=== PATIENT | female | born 1955 | race Caucasian/White ===

== ENCOUNTER 2020-03-05 07:33 | Outpatient (REF) | payer MEDICARE, OTHER, SELFPAY ==
[2020-03-05 08:36] LABS: MANUAL DIFF FLAG NO
[2020-03-05 08:46] LABS: Basophils Absolute Auto 0.1 X10*3/uL (0.0-0.2); Basophils Percent Auto 0.6 % (0-2); Eosinophils Absolute Auto 0.3 X10*3/uL (0.0-0.4); Eosinophils Percent Auto 2.9 % (0-4); Hematocrit 43.2 % (37-47); Hemoglobin 14.3 g/dl (12.0-16.0); Imm Gran Abs Auto 0.02 X10*3/uL (0.00-0.03); Imm Gran Pct Auto 0.2 % (0.0-0.4); Lymphocytes Absolute Auto 4.4 X10*3/uL (1.2-4.9); Lymphocytes Percent Auto 49.8 % (20-40); Mean Corpuscular HGB Conc 33.1 g/dl (31.0-35.0); Mean Corpuscular Hemoglobin 29.5 pg (27.0-33.0); Mean Corpuscular Volume 89.3 fL (80-98); Mean Platelet Volume 10.3 fL (9.4-12.3); Monocytes Absolute Auto 0.6 X10*3/uL (0.1-1.2); Monocytes Percent Auto 7.2 % (2-11); Neutrophils Absolute Auto 3.5 X10*3/uL (2.0-8.3); Neutrophils Percent Auto 39.3 % (45-73); Platelet Count 219 X10*3/uL (160-400); Red Blood Count 4.84 X10*6/uL (4.20-5.50); Red Cell Distribution Width 13.1 % (11.0-16.0); White Blood Count 8.9 X10*3/uL (4.8-10.8)
[2020-03-05 09:10] LABS: Alanine Aminotransferase 30 U/L (0-31); Albumin Level 4.2 g/dL (3.5-5.0); Alkaline Phosphatase 109 U/L (39-117); Anion Gap 11 (12-20); Aspartate Amino Transferase 24 U/L (5-31); Bilirubin Total 0.5 mg/dL (0.0-1.0); Blood Urea Nitrogen 15 mg/dL (9-16); Calcium 9.4 mg/dL (8.4-10.2); Carbon Dioxide 26 mmol/L (22-29); Chloride 107 mmol/L (96-108); Cholesterol 197 mg/dL; Estimated Glomerular Filt Rate > 60; Glucose Fasting 108 mg/dL (60-99); HDL Cholesterol 37 mg/dL; LDL Cholesterol Calculated 131 mg/dl; Potassium 4.5 mmol/l (3.3-5.1); Sodium 139 mmol/L (135-145); Total Protein 7.2 g/dL (6.5-8.0); Triglycerides 146 mg/dL
[2020-03-05 09:14] LABS: Glucose Urine UA NEG (NEG); Leukocyte Esterase Urine NEG (NEG); Nitrite Urine NEG (NEG); PH 5.5 (5.0-8.0); Specific Gravity - Urine >= 1.030 (1.005-1.025); Urine Blood TRACE (NEG); Urine Ketones NEG (NEG); Urine Protein NEG (NEG-TRACE)
[2020-03-05 09:32] LABS: Vitamin D 25-OH Total 43.6 ng/mL (>30)
[2020-03-05 09:36] LABS: Appearance Urine CLEAR; Color Urine YELLOW
[2020-03-05 10:20] LABS: Squamous Epithelial Cell Urine TRACE /LPF
== END 2020-03-05 07:34 | disposition home or self-care (01) ==
LOC: HO.LAB 07:33
PROVIDERS: PCP Internal Medicine; Visit Provider Internal Medicine
DX: D72.820 Lymphocytosis (symptomatic) (principal); E78.00 Pure hypercholesterolemia, unspecified; Z78.0 Asymptomatic menopausal state; Z87.448 Personal history of other diseases of urinary system
CPT/HCPCS: 36415; 80053; 80061; 81001; 81003; 82306; 85025

== ENCOUNTER 2021-01-29 09:43 | Day surgery (SDC) | payer OTHER, SELFPAY ==
[2021-01-29 10:29] VITALS: BP 146/73; PULSE 73; RESP 20; TEMP 36.7; O2SAT 97; BMI 36.0
--- NOTE | 2021-01-29 11:00 | HO.ANESPROP2 ---
[facility] Surgical History Surgical History (Updated 01/29/21 @ 10:41 by Martina Butler RN) H/O left knee surgery History of Problems with Anesthesia: No Social History Social History Patient Tobacco Use Status: Former Tobacco user Use of substances other than those prescribed or required for medical reasons: No Are you DNR?: No Advance Directives: No Advance Directives Information Provided: Yes Meds Allergies Allergy/AdvReac Type Severity Reaction Status Date / Time No Known Allergies Allergy Verified 01/29/21 10:34 [No Known Allergies*] Exam Exam Date and Time: January 29, 2021 1100 Height,Weight and Vital Signs: Height 5 ft 7 in Weight 104.326 kg Last Vital Signs Temp 98.1 F 01/29/21 10:29 Pulse 73 01/29/21 10:29 Resp 20 01/29/21 10:29 BP 146/73 H 01/29/21 10:29 Pulse Ox 97 01/29/21 10:29 Airway Mallampati Class: II TM Dist: >3cm Neck ROM: Full Loose/Missing/Broken Teeth: No Heart: RRR Lungs: CTA Assessment and Plan Assessment Anesthesia Assessment: Anesthesia Plan Discussed and Chart Reviewed Final Anesthetic Review History of Problems with Anesthesia: No NPO: Yes ASA Class: II Final Preanesthetic Review: Meds/Allgs Chart Reviewed, Consent Obtained/Reviewed and Anes Risks/Benef Reviewed Patient Risk: Low Procedure Risk: Low Anesthetic Plan Anesthetic Plan: MAC: Disposition: Standard PACU
--- NOTE | 2021-01-29 11:20 | MHC.SHP ---
Pre-Procedural Eval Section A Date of Service: 01/29/21 The patient is an INPATIENT: No Changes since office visit: No Cold of Flu in the past 2 weeks, No New Medical Problems, No Changes in Medication and No Patient answered all questions The History & Physical has been completed within 30 days and I have reviewed it.: Yes Section B Chief Complaint: screening Allergies: Allergies Allergy/AdvReac Type Severity Reaction Status Date / Time No Known Allergies Allergy Verified 01/29/21 10:34 [No Known Allergies*] Plan I have reviewed the history and physical and performed a pertinent physical examination on my patient. No changes have occurred unless specified.
[2021-01-29] MEDS: Lactated Ringers 1,000 ML 50 ML IVCONT (11:28)
[2021-01-29 12:11] VITALS: BP 142/73; PULSE 73; RESP 18; TEMP 36.6; O2SAT 99
--- NOTE | 2021-01-29 12:20 | P.BOP_ITS ---
Brief Operative Note Date of Service: 01/29/21 Pre-op diagnosis: screening Post-op diagnosis: same Procedure: colonoscopy Surgeon: Osvaldo Ulloa Anesthesia: MAC Was an Rubber Stamp Die Inspector used for this Procedure?: No Estimated blood loss (mL): 0 Pathology: none sent Condition: stable Disposition: PACU
[2021-01-29 12:26] VITALS: BP 141/84; PULSE 68; RESP 18; O2SAT 96
[2021-01-29 12:38] VITALS: BP 149/94; PULSE 68; RESP 18; O2SAT 100
--- NOTE | 2021-01-29 18:50 | OP_ITS ---
SURGEON: Osvaldo Ulloa MD INDICATIONS: Colon cancer screening and prior history of sessile serrated adenoma. PREOPERATIVE DIAGNOSIS: POSTOPERATIVE DIAGNOSIS: PROCEDURE PERFORMED: Colonoscopy to the terminal ileum. ESTIMATED BLOOD LOSS: COMPLICATIONS: ANESTHESIA: ASSISTANTS: SPECIMENS: MEDICATIONS: Monitored anesthesia care. DESCRIPTION OF PROCEDURE: History and physical performed. The risks and benefits of the procedure were explained to the patient. Informed consent was obtained. The patient was placed in the left lateral decubitus position. A digital rectal exam was performed and was found to be normal. The Olympus pediatric video colonoscope was introduced into the rectum and advanced to the cecum without difficulty. The cecum was identified by transillumination, palpation, and identification of ileocecal valve. Examination was performed and the scope was removed. She tolerated the procedure well and was taken to recovery area in stable condition. FINDINGS: The terminal ileum was examined and appeared normal. The visualized colonic mucosa was normal. The quality of the prep was good. No polyps were identified. Retroflexed examination showed small internal hemorrhoids. There were few diverticula seen in the sigmoid. IMPRESSION: Normal colonoscopy. RECOMMENDATIONS: 1. Follow up as needed. 2. Repeat colonoscopy is recommended in 7 to 10 years because of prior history of colon polyps. MD NETO Schultz/NOVA / [id number]
== END 2021-01-29 13:24 | disposition home or self-care (01) ==
PROVIDERS: PCP Internal Medicine; Visit Provider Internal Medicine Gastroenterology
PROC: 0DJD8ZZ Inspection of Lower Intestinal Tract, Via Natural or Artificial Opening Endoscopic (ICD-10-PCS; CPT 45378; principal; 2021-01-29 11:00)
DX: Z12.11 Encounter for screening for malignant neoplasm of colon (principal); Z86.010 Personal history of colon polyps
CPT/HCPCS: G0105

== ENCOUNTER 2022-01-02 21:18 | Emergency (ER) | payer OTHER, SELFPAY ==
--- NOTE | ~2022-01-02 | XR_ITS ---
EXAMINATION: RIGHT HIP AND RIGHT KNEE. CLINICAL INFORMATION: Fall. Pain. COMPARISON: None TECHNIQUE: AP pelvis and right hip 3 views. Right knee 3 views. FINDINGS: AP pelvis: There is normal symmetry of bilateral hip joints and SI joints. Hypertrophic changes along the pubic symphysitis is noted. No visible acute fracture seen. There is moderate degenerative changes with moderate spondylosis on the left at the L4-L5 and L5-S1 disc levels. Right hip: AP and frog-leg views right hip reveal no visible acute fracture, dislocation or subluxation seen. The soft tissues are normal. Right knee: There is no visible acute fracture, dislocation or subluxation seen. The soft tissues are normal. Lateral view right knee is not obtained. XR/XR knee RT 4V IMPRESSION: No acute fracture or dislocation involving the pelvis of the right hip.
--- NOTE | ~2022-01-02 | XR_ITS ---
EXAMINATION: RIGHT HIP AND RIGHT KNEE. CLINICAL INFORMATION: Fall. Pain. COMPARISON: None TECHNIQUE: AP pelvis and right hip 3 views. Right knee 3 views. FINDINGS: AP pelvis: There is normal symmetry of bilateral hip joints and SI joints. Hypertrophic changes along the pubic symphysitis is noted. No visible acute fracture seen. There is moderate degenerative changes with moderate spondylosis on the left at the L4-L5 and L5-S1 disc levels. Right hip: AP and frog-leg views right hip reveal no visible acute fracture, dislocation or subluxation seen. The soft tissues are normal. Right knee: There is no visible acute fracture, dislocation or subluxation seen. The soft tissues are normal. Lateral view right knee is not obtained. XR/XR hip RT min 2V IMPRESSION: No acute fracture or dislocation involving the pelvis of the right hip.
[2022-01-02 21:39] VITALS: BP 145/74; PULSE 72; RESP 16; TEMP 36.2; O2SAT 97; BMI 33.6
[2022-01-03 01:46] VITALS: PULSE 76; RESP 18; O2SAT 94
[2022-01-03] MEDS: Ibuprofen 600 MG TABLET PO (02:43)
--- NOTE | 2022-01-03 03:49 | ED.FALL ---
HPI - Fall General Chief Complaint: Fall Stated Complaint: fall Time Seen by Provider: 01/03/22 03:49 History of Present Illness HPI Narrative: Patient is 66-year-old female status post accidental fall. Patient's caught her right foot on the born door. Twisted her knee and also her right hip area. Patient was able to bear weight. Denies any head injury. Not on blood thinners. No nausea no vomiting no focal weakness. Patient is from home. Related Data Allergies Allergy/AdvReac Type Severity Reaction Status Date / Time No Known Allergies Allergy Verified 01/02/22 21:44 [No Known Allergies*] Review of Systems Review of Systems: No chest pain or shortness of breath no diaphoresis No fever no chills No head injury Yes all other systems are reviewed and are negative [facility] Past Medical History Attestation statement: The following information was validated with the patient. Surgical History H/O left knee surgery Social History Social History Patient Tobacco Use Status: Former Tobacco user Advance Directives: No Advance Directives Information Provided: Yes Physical Exam Vital Signs: Vital Signs: Last Vital Signs Temp 97.1 F 01/02/22 21:39 Pulse 76 01/03/22 01:46 Resp 18 01/03/22 01:46 BP 145/74 H 01/02/22 21:39 Pulse Ox 94 01/03/22 01:46 O2 Del Method 01/03/22 01:46 BMI result Body Mass Index 33.6 Appearance: Alert. Oriented X3. No acute distress. Eyes: Pupils equal, round and reactive to light. ENT: Pharynx normal. Neck: Normal inspection. Neck supple. No lymph nodes noted. No crepitus CVS: Normal heart rate and rhythm. Pulses normal. Normal S1 and S2 Respiratory: No respiratory distress. Breath sounds normal. No Wheezing. No rales Abdomen: Soft and nontender. No rigidity. No distention. good BS x4 Skin: Skin warm and dry. Normal skin color. Normal skin turgor. Extremities: No lower extremity edema. Neurovascular intact to all extremities. Range of motion grossly intact in the lower extremity. Distal pulses intact. Sensation intact. Capillary refill less than 2 seconds. Able to bear weight on the right hip without any difficulties. Neuro: Oriented X 3. No motor deficit. No sensory deficit. Moving all extermities. No slurred speech MDM - Fall MDM Narrative Medical decision making narrative: X-ray of the hip and knees were both negative for any acute fracture. Patient well-appearing no head injury. Ambulated in the ED. Will ask patient to take Motrin for now. Follow-up on an outpatient basis. Medical Records Attestation: I reviewed the patient's medical records. Lab Data Attestation: I reviewed the patient's lab results. Discharge Plan Discharge Clinical Impression: Contusion Patient Disposition: Home, Self-Care Instructions: Contusion in Adults (ED) Referrals: Leda Busch [Primary Care Provider] - 01/06/22
== END 2022-01-03 04:08 | disposition home or self-care (01) ==
PROVIDERS: Emergency Provider Emergency Medicine Emergency Medical Services
DX: S80.01XA Contusion of right knee, initial encounter (principal); S70.01XA Contusion of right hip, initial encounter; M25.551 Pain in right hip; M25.561 Pain in right knee; W01.0XXA Fall on same level from slipping, tripping and stumbling without subsequent striking against object, initial encounter; Y93.9 Activity, unspecified; Y92.9 Unspecified place or not applicable; Y99.9 Unspecified external cause status; Z79.899 Other long term (current) drug therapy
CPT/HCPCS: 73502; 73564; 99283; 99284

== ENCOUNTER 2022-06-19 10:34 | Outpatient (REF) | payer OTHER, SELFPAY ==
[2022-06-19 10:37] LABS: MANUAL DIFF FLAG NO
[2022-06-19 10:54] LABS: Appearance Urine Clear; Color Urine Yellow; Glucose Urine UA Negative (Negative); Leukocyte Esterase Urine Negative (Negative); Nitrite Urine Negative (Negative); PH 5.5 (5.0-9.0); Specific Gravity - Urine 1.015 (1.005-1.025); Urine Blood Negative (Negative); Urine Ketones Negative (Negative); Urine Protein Negative (Neg-Trace)
[2022-06-19 10:59] LABS: Bacteria Urine None Seen (None Seen); Hyaline Casts Urine 0-2 /LPF (0-2); RBC Urine 0-2 /HPF (0-2); WBC Urine 0-5 /HPF (0-5)
[2022-06-19 11:03] LABS: Basophils Absolute Auto 0.1 X10*3/uL (0.0-0.2); Basophils Percent Auto 0.6 % (0-2); Eosinophils Absolute Auto 0.2 X10*3/uL (0.0-0.4); Eosinophils Percent Auto 2.1 % (0-4); Hematocrit 44.4 % (37.0-47.0); Hemoglobin 14.9 g/dl (12.0-16.0); Imm Gran Abs Auto 0.04 X10*3/uL (0.00-0.03); Imm Gran Pct Auto 0.5 % (0.0-0.4); Lymphocytes Absolute Auto 4.7 X10*3/uL (1.2-4.9); Lymphocytes Percent Auto 56.2 % (20-40); Mean Corpuscular HGB Conc 33.6 g/dl (31.0-35.0); Mean Corpuscular Hemoglobin 29.8 pg (27.0-33.0); Mean Corpuscular Volume 88.8 fL (80.0-98.0); Mean Platelet Volume 11.1 fL (9.4-12.3); Monocytes Absolute Auto 0.6 X10*3/uL (0.1-1.2); Monocytes Percent Auto 7.1 % (2-11); Neutrophils Absolute Auto 2.8 x10*3/uL (2.0-8.3); Neutrophils Percent Auto 33.5 % (45-73); Platelet Count 220 X10*3/uL (160-400); Red Cell Distribution Width 12.5 % (11.0-16.0); White Blood Count 8.4 X10*3/uL (4.8-10.8)
[2022-06-19 11:11] LABS: Alanine Aminotransferase 29 U/L (0-31); Albumin Level 4.3 g/dL (3.5-5.0); Alkaline Phosphatase 110 U/L (39-117); Anion Gap 10 (12-20); Aspartate Amino Transferase 26 U/L (5-31); Bilirubin Total 0.4 mg/dL (0.0-1.0); Blood Urea Nitrogen 13 mg/dL (9-16); Calcium 9.4 mg/dL (8.4-10.2); Carbon Dioxide 26 mmol/L (22-29); Chloride 110 mmol/L (96-108); Cholesterol 217 mg/dL; Estimated Glomerular Filt Rate > 60; Glucose Fasting 105 mg/dL (60-99); HDL Cholesterol 40 mg/dL; LDL Cholesterol Calculated 148 mg/dl; Potassium 4.5 mmol/L (3.3-5.1); Sodium 141 mmol/L (135-145); Total Protein 7.1 g/dL (6.5-8.0); Triglycerides 147 mg/dL
== END 2022-06-19 10:35 | disposition home or self-care (01) ==
LOC: HO.LNP 10:34
PROVIDERS: Visit Provider Internal Medicine
DX: D72.820 Lymphocytosis (symptomatic) (principal); E78.00 Pure hypercholesterolemia, unspecified
CPT/HCPCS: 80053; 80061; 81001; 85025

== ENCOUNTER 2023-06-23 11:26 | Outpatient (REF) | payer OTHER, SELFPAY ==
[2023-06-23 11:29] LABS: MANUAL DIFF FLAG NO
[2023-06-23 12:04] LABS: Appearance Urine Clear; Color Urine Yellow; Glucose Urine UA Negative (Negative); Leukocyte Esterase Urine Small (1+) (Negative); Nitrite Urine Negative (Negative); PH 5.5 (5.0-9.0); UMIC TRIGGER UACC YES; Urine Blood Negative (Negative); Urine Ketones Negative (Negative); Urine Protein Negative (Neg-Trace)
[2023-06-23 12:05] LABS: Basophils Absolute Auto 0.1 X10*3/uL (0.0-0.2); Basophils Percent Auto 0.8 % (0-2); Eosinophils Absolute Auto 0.2 X10*3/uL (0.0-0.4); Eosinophils Percent Auto 2.2 % (0-4); Hematocrit 44.1 % (37.0-47.0); Hemoglobin 14.7 g/dl (12.0-16.0); Imm Gran Abs Auto 0.02 X10*3/uL (0.00-0.03); Imm Gran Pct Auto 0.2 % (0.0-0.4); Lymphocytes Absolute Auto 4.8 X10*3/uL (1.2-4.9); Mean Corpuscular HGB Conc 33.3 g/dl (31.0-35.0); Mean Corpuscular Hemoglobin 29.7 pg (27.0-33.0); Mean Corpuscular Volume 89.1 fL (80.0-98.0); Mean Platelet Volume 11.7 fL (9.4-12.3); Monocytes Absolute Auto 0.6 X10*3/uL (0.1-1.2); Monocytes Percent Auto 7.3 % (2-11); Neutrophils Absolute Auto 2.6 x10*3/uL (2.0-8.3); Neutrophils Percent Auto 31.5 % (45-73); Platelet Count 225 X10*3/uL (160-400); Red Blood Count 4.95 X10*6/uL (4.20-5.50); Red Cell Distribution Width 12.3 % (11.0-16.0); White Blood Count 8.3 X10*3/uL (4.8-10.8)
[2023-06-23 12:32] LABS: Bacteria Urine None Seen (None Seen); Hyaline Casts Urine 0-2 /LPF (0-2); RBC Urine 0-2 /HPF (0-2); UACC Culture Trigger YES; WBC Urine 0-5 /HPF (0-5)
[2023-06-23 12:48] LABS: Alanine Aminotransferase 25 U/L (0-31); Albumin Level 4.1 g/dL (3.5-5.0); Alkaline Phosphatase 97 U/L (39-117); Anion Gap 12 (12-20); Aspartate Amino Transferase 24 U/L (5-31); Bilirubin Total 0.3 mg/dL (0.0-1.0); Blood Urea Nitrogen 14 mg/dL (9-16); Calcium 9.4 mg/dL (8.4-10.2); Carbon Dioxide 23 mmol/L (22-29); Chloride 111 mmol/L (96-108); Cholesterol 211 mg/dL (<200); Estimated Glomerular Filt Rate > 60; Glucose Fasting 88 mg/dL (60-99); HDL Cholesterol 43 mg/dL (>40); LDL Cholesterol Calculated 140 mg/dL (<100); Potassium 4.2 mmol/L (3.3-5.1); Sodium 142 mmol/L (135-145); Total Protein 7.2 g/dL (6.5-8.0); Triglycerides 140 mg/dL (<150)
== END 2023-06-23 11:27 | disposition home or self-care (01) ==
LOC: HO.LNP 11:26
PROVIDERS: Visit Provider Internal Medicine
DX: Z00.00 Encounter for general adult medical examination without abnormal findings (principal); E78.00 Pure hypercholesterolemia, unspecified; D72.820 Lymphocytosis (symptomatic); R82.90 Unspecified abnormal findings in urine
CPT/HCPCS: 80053; 80061; 81001; 85025; 87086

== ENCOUNTER 2024-06-15 11:52 | Outpatient (RCR) | payer OTHER, SELFPAY | END 2024-06-24 08:39 | disposition home or self-care (01) | LOC: HO.PT 11:52 | PROVIDERS: PCP Internal Medicine; Visit Provider Orthopaedic Surgery | DX: M76.61 Achilles tendinitis, right leg (principal) | CPT/HCPCS: 97110; 97161; 97530 ==

== ENCOUNTER 2024-06-19 08:07 | Emergency (ER) | payer OTHER, SELFPAY ==
--- NOTE | ~2024-06-19 | XR_ITS ---
CLINICAL HISTORY: fall, lateral swelling and tenderness 3 views right ankle Comparison: None Findings: No fractures, subluxations or dislocations. Ankle mortise intact. Normal plafond. No osteochondral lesions. Calcaneus and subtalar joint intact. Mild degenerative changes involving the talonavicular joint. Plantar calcaneal enthesophyte. There is flattening of the posterior calcaneal tuberosity this may be developmental or from prior surgery clinical correlation. Soft tissue swelling posterolaterally. Normal pre-Achilles fat pad. No radiopaque foreign body. Impression: 1. Soft tissue swelling posterolaterally. Mild degenerative changes. This document has been electronically signed by: Nicholas Patton MD on 06/19/2024 09:51:48
[2024-06-19 08:19] VITALS: BP 149/85; PULSE 78; RESP 18; TEMP 36.3; O2SAT 96; BMI 35.5
[2024-06-19 08:46] VITALS: BP 141/71; PULSE 72; RESP 13; TEMP 36.6; O2SAT 97
--- NOTE | 2024-06-19 09:07 | ED_ITS ---
HPI - General Adult General Chief complaint: Extremity Injury, Lower Stated complaint: fall Time Seen by Provider: 06/19/24 09:00 Source: patient, family (), RN notes reviewed and old records reviewed Mode of arrival: wheelchair Limitations: no limitations History of Present Illness ED Provider: Paco HPI narrative: Patient is a 68-year-old female presenting to the emergency department with complaint of right ankle/achilles pain and swelling. States that while bringing her dog in from a walk she tripped, and got her foot hung up on a clump of grass, causing her foot to become hyperextended. She reports recent surgery with Dr. Crowe in [place], [place] to same ankle. She notes this was not for an achilles tear or rupture but affected the attachment of the tendon to her heel. Did not call Dr. Crowe's office, does not believe they have an on-call. Denies numbness, tingling. Called an urgent care and was advised to put on her walking boot which she has been out of for the past 2 weeks. MD complaint: right ankle pain Onset (ago): hour(s) Treatments prior to arrival: cold therapy and other (Tylenol) Related Data Allergies Allergy/AdvReac Type Severity Reaction Status Date / Time No Known Allergies Allergy Verified 06/19/24 08:22 [No Known Allergies*] Review of Systems Review of Systems: As per HPI. Yes all other systems are reviewed and are negative Constitutional: Constitutional: Reports as per HPI [facility] Past Medical History Surgical History H/O left knee surgery Social History Social History Patient Tobacco Use Status: Former Tobacco user Advance Directives: Yes Advance Directives Information Provided: Yes Advance Directives on File: No Physical Exam ED Vital Signs: Vital Signs - 24 hr 06/19/24 08:19 06/19/24 08:46 Temperature 97.3 F 97.9 F Pulse Rate 78 72 Respiratory Rate 18 13 Blood Pressure 149/85 H 141/71 H Pulse Oximetry 96 97 Oxygen Delivery Method Room Air Room Air BMI result Body Mass Index 35.5 Vital signs have been reviewed and appear to be correct. Blood pressure normal. Heart rate normal. Respiratory rate normal. Temperature normal. Oxygen saturation normal. Const General: cooperative, healthy appearing and no acute distress Orientation/consciousness: oriented to person, oriented to place, oriented to time and patient oriented x3 Limitations: no limitations HENMT Head: Yes normocephalic and Yes atraumatic Ears: external ears normal General nose exam: Normal external nose present Face and sinus: Yes face symmetric Mouth: oropharynx normal and moist mucous membranes Throat: Yes uvula midline Eyes Pupils: Equal, round and reactive pupils present Neck Neck: Yes normal visual inspection and Yes supple Resp Effort & Inspection: normal respiratory effort and able to speak in complete sentences Auscultation: clear to auscultation bilaterally Cardio Rate: regular rate Rhythm: regular rhythm Heart sounds: S1 normal heart sound present and S2 normal heart sound present GI Palpation (GI): Soft to palpation and nontender Auscultation: normoactive bowel sounds General: Yes no CVA tenderness Back/Spine/Pelvis Back: no CVA tenderness Skin General skin exam: elasticity normal and turgor normal Neuro General: oriented to person, oriented to place, oriented to time, patient oriented x3, moves all extremities, no focal motor deficits and CN's II-XI intact bilaterally Cranial nerves: Yes Equal, round and reactive pupils present Cognition (Neuro): normal cognition Extrem General: Yes full ROM, Yes no pedal edema and Yes no calf tenderness Right lower extremity: ankle Details: tenderness Location: of the lateral malleolus, of the medial malleolus and of the achilles tendon, swelling Details: laterally and posteriorly, normal ROM and achilles tendon exam abnormal (negative Sauer test on the right) Details: tenderness to palpation of achilles tendon; no step-off noted; no unusual warmth, no ecchymosis and no crepitus and foot Details: toes with normal ROM and vascular exam Details: dorsalis pedis pulse present, posterior tibial pulse present and normal capillary refill Psych Mental Status: mental status grossly normal Affect: normal affect Thought process: Normal thought process present Medical Decision Making Medical Decision Making MDM Narrative: Patient is a 68-year-old female presenting to the emergency department with complaint of right ankle/achilles pain and swelling. On exam patient is awake, A+Ox3, VS WNL, afebrile, normal neurological exam without focal deficits, physical exam findings as above. Given reported symptoms and physical exam findings, initial differential includes but is not limited to achilles tendon tear, ankle strain, sprain, fracture/avulsion. X-ray right ankle notable for no acute fracture. My interpretation is in agreement with the radiologist's interpretation. Patient updated on results and all questions answered. Patient placed back in walking boot and advised to keep this on until she is able to follow-up with her orthopedist next week. Advised patient to avoid any strenuous activities, keep foot elevated while at rest, Tylenol and ibuprofen as needed for discomfort. Return precautions discussed at bedside. Patient verbalized understanding of and agreement with plan. Differential Diagnosis Differential Diagnoses: The differential diagnosis associated with the presentation includes As per [facility] Independent Interpretation I performed an independent interpretation of an: Plain X-Ray Interpretation: No acute fracture right ankle on x-ray. Radiology Impression Discussion of test interpretation with radiology: I have reviewed the radiologist's reading. Radiologist Impression: Findings: No fractures, subluxations or dislocations. Ankle mortise intact. Normal plafond. No osteochondral lesions. Calcaneus and subtalar joint intact. Mild degenerative changes involving the talonavicular joint. Plantar calcaneal enthesophyte. There is flattening of the posterior calcaneal tuberosity this may be developmental or from prior surgery clinical correlation. Soft tissue swelling posterolaterally. Normal pre-Achilles fat pad. No radiopaque foreign body. Impression: 1. Soft tissue swelling posterolaterally. Mild degenerative changes. External Record Review External record reviewed: Inpatient record, Office record and Outpatient record Discharge Plan Discharge Clinical Impression: Ankle pain, right Patient Disposition: Home, Self-Care Instructions: R.I.C.E. Treatment (ED), Walking Boot (ED) Additional Instructions: You were evaluated in the emergency department today for right ankle pain after a fall. Your x-ray did not show any evidence fracture. We recommend that you continue to use the walking boot previously provided to until you are able to follow-up with your orthopedic doctor. Call their office 1st thing Thursday morning to schedule follow-up appointment. We recommend that you keep your foot elevated while at rest. You can use 650 mg of Tylenol or 600 mg ibuprofen every 6 hours as needed for discomfort. Return to the emergency department if you develop new weakness, numbness, tingling, change of color in your foot or any other new or concerning symptoms. Referrals: Kathy Crowe MD [Physician] - Print Language: Algerian
[2024-06-19 10:22] VITALS: BP 141/71; PULSE 72; RESP 13; TEMP 36.6; O2SAT 97
== END 2024-06-19 10:24 | disposition home or self-care (01) ==
PROVIDERS: Emergency Provider Emergency Medicine; PCP Internal Medicine
DX: S99.911A Unspecified injury of right ankle, initial encounter (principal); M25.571 Pain in right ankle and joints of right foot; W01.0XXA Fall on same level from slipping, tripping and stumbling without subsequent striking against object, initial encounter; Y93.K1 Activity, walking an animal; Y92.410 Unspecified street and highway as the place of occurrence of the external cause; Y99.8 Other external cause status
CPT/HCPCS: 73600; 99283

== ENCOUNTER → 2024-06-19 09:27 | Outpatient (BNV) | payer OTHER, SELFPAY | PROVIDERS: Emergency Provider Emergency Medicine; PCP Internal Medicine; Visit Provider Radiology Diagnostic Radiology | DX: M79.89 Other specified soft tissue disorders (principal); W19.XXXA Unspecified fall, initial encounter | CPT/HCPCS: 73600 ==

== ENCOUNTER 2024-07-21 11:30 | Outpatient (REF) | payer OTHER, SELFPAY ==
[2024-07-21 12:15] LABS: Appearance Urine Clear; Color Urine Yellow; Glucose Urine UA Negative (Negative); Leukocyte Esterase Urine Negative (Negative); Nitrite Urine Negative (Negative); Urine Blood Negative (Negative); Urine Ketones Negative (Negative); Urine Protein Negative (Neg-Trace)
[2024-07-21 12:20] LABS: Bacteria Urine None Seen (None Seen); Hyaline Casts Urine 0-2 /LPF (0-2); RBC Urine 0-2 /HPF (0-2); WBC Urine 0-5 /HPF (0-5)
[2024-07-21 12:32] LABS: Alanine Aminotransferase 35 U/L (0-31); Albumin Level 4.1 g/dL (3.5-5.0); Alkaline Phosphatase 118 U/L (39-117); Anion Gap 12 (12-20); Aspartate Amino Transferase 34 U/L (5-31); Bilirubin Total 0.4 mg/dL (0.0-1.0); Blood Urea Nitrogen 12 mg/dL (9-16); Calcium 9.3 mg/dL (8.4-10.2); Carbon Dioxide 23 mmol/L (22-29); Chloride 112 mmol/L (96-108); Cholesterol 222 mg/dL (<200); Estimated Glomerular Filt Rate > 60; Glucose Fasting 106 mg/dL (60-99); HDL Cholesterol 40 mg/dL (>40); LDL Cholesterol Calculated 148 mg/dL (<100); Potassium 4.2 mmol/L (3.3-5.1); Sodium 143 mmol/L (135-145); Total Protein 7.6 g/dL (6.5-8.0); Triglycerides 171 mg/dL (<150)
--- OUTSIDE RECORDS SUMMARY | 2024-07-21 12:52 | XMS_ITS ---
Author Organization Clark Mejía MD Address [address] [place], [place] [id number] Care Team Providers Care Cleat Thrower Name Role Phone Clark Mejía Primary Care Provider Allergies No Known Allergies REASON FOR VISIT annual visit, NO Covid symptoms Medications Medication SIG (Take, Route, Frequency, Duration) Notes Start Date End Date Status Calcium 600 MG 1 tablet with meals Orally Twice a day for 30 day(s) Active Vitamin D-3 125 MCG (5000 UT) as directed Orally Active Glucosamine Chondr 500 Complex - Orally Active Multi-Vitamins - 1 tablet Orally Once a day Active Aspirin 325 MG 1 tablet Orally Once a day for 30 day(s) Not-Taking Meloxicam 7.5 MG 1 tablet Orally Once a day for 30 day(s) Not-Taking Ibuprofen 600 MG 1 tablet Orally Thre e times a day Not-Taking Social History Tobacco Use: Social History Observation Description Date Details (start date - stop date) Former Smoker NA - NA Tobacco Use/Smoking Question Answer Notes Patient is a former smoker How long has it been since y ou last smoked? > 10 years Additional Findings: Tobacco Non-User Fo rmer smoker, currently using no form of tobacco Alcohol Screen Question Answer Notes Did you have a drink containing alcohol in the p ast year? No Points 0 Interpretation Negative Vital Signs Blood pressure systolic 132 mm Hg 06/30/19 24 Blood pressure diastolic 78 mm Hg 024 Height 66.5 in 06/30/2023 Weight 227 lbs 06/30/2023 BMI 36.09 kg/m2 06/30/2023 weight is down 3 pounds sinc e 06-26-22 Encounters Encounter Location Date Provider Diagnosis Clark Mejía MD [address] [place] [address] Drive [address] [place], [place] [phone] 06/30/2023 Clark Mejía Lymphocytosis D72.82 0 ; Annual physical exam Z00.00 ; Pure hypercholesterolemia E78.00 and Depression screening Z13.31 Assessments Encounter Date Diagnosis (ICD Code) Assessment Notes Treatment Notes Treatment Clinical Notes Section Notes 06/30/2023 Lymphocytosis (ICD-1 0 - D72.820) stable, will continue to monitor 06/30/2023 Annual physical exam (ICD-10 - Z00.00) labs reviewed and discussed with patients 06/30/2023 Pure hypercholesterolemia (ICD-10 - E78.00) stable, will continue current regiment 06/30/2023 Depression screening (ICD-10 - Z13.31) negative screen Plan Of Treatment Treatment Notes Assessment Notes Lymphocytosis stable, will continu e to monitor Annual physical exam labs reviewed and d iscussed with patients Pure hypercholesterolemia stable, will c ontinue current regiment Depression screening negative screen Next Appt Details Provider Name:Clark Llamas ier, 07/28/2024 11:00:00 AM, [address] [place] [address], [address], [place], [place], [phone], Progress Notes * Nadia LEE LDOB:1955 (67 yo F)Acc No.[id number]:06/30/2023 Progress Notes Patient:?Nadia Lee Provider:?Clark Mejía MD :1955???Age:67 Y???Sex:Female D ate:06/30/2023 [id number] Subjective: * Chief Complaints: * ???Annual visitNO Covid symp toms * HPI: ???Depression Screening:?PHQ-9?Little interest or pleasure in doing things?Not at all,?Feeling down, depressed, or hopeless?Not at all,?Trouble falling or staying asleep, or sleeping too much?Not at all,?Feeling tired or having little energy?Not at all,?Poor appetite or overeating?Not at all,?Feeling bad about yourself or that you are a failure, or have let yourself or your family down?Not at all,?Trouble concentrating on things, such as reading the newspaper or watching television?Not at all,?Moving or speaking so slowly that other people could have noticed; or the opposite, being so fidgety or restless that you have been moving around a lot more than usual?Not at all,?Thoughts that you would be better off or of hurting yourself in some way?Not at all,?Total Score?0.?Interpretation and Intervention?Depression Screening Findings?Negative,?Follow-Up for Depression?: review of PHQ-9 found negative result, no follow-up needed.?Communication Needs:?Communication Needs?Does the patient have a hearing impairment?No,?Does the patient have a vision impairment??Yes,?If yes, what is the vision impairment??Contact Lenses,?Does the patient have a cognition impairment??No.?Fall Risk:?History?Have you had any falls with injury in the past year??No,?Have you had two or more falls in the past year??No.?SDOH Questions:?SDOH Questions?In the past year have you been worried about losing housing??No,?In the past year have you or any family members you live with been unable to get any of the following when it was really needed? Check all that apply:?None.?Symptom(s):? patient is a 67 yo female here for annual visit with review of recent labs and follow up of chronic issues. * ROS:?General/Constitutional:?Patient denies?fatigue , headache.?Change in appetite?denies.?Chills?denies.?Fever?denies.?Ophthalmologic:?Blurred vision?denies.?Discharge?denies.?Pain?denies.?ENT:?Patient denies?decreased sense of smell , any loss of taste , sore throat.?Decreased hearing?denies.?Sore throat?denies.?Swollen glands?denies.?Endocrine:?Cold intolerance?denies.?Excessive thirst?denies.?Heat intolerance?denies.?Weight loss?denies.?Respiratory:?Cough?denies.?Shortness of breath at rest?denies.?Shortness of breath with exertion?denies.?Wheezing?denies.?Cardiovascular:?Chest pain at rest?denies.?Chest pain with exertion?denies.?Irregular heartbeat?denies.?Shortness of breath?denies.?Gastrointestinal:?Abdominal pain?denies.?Change in bowel habits?denies.?Diarrhea?denies.?Nausea?denies.?Rectal bleeding?denies.?Vomiting?denies .?Genitourinary:?Blood in urine?denies.?Difficulty urinating?denies.?Frequent urination?denies.?Urinary incontinence?Denies.?Musculoskeletal:?Patient denies?muscle aches.?Painful joints?denies.?Weakness?denies.?Peripheral Vascular:?Patient denies?red and blue toes.?Skin:?Dry skin?denies.?Itching?denies.?Denies?Mole(s),? changes in moles, new moles or any lesions of concern.?Denies?Photosensitivity.?Rash?denies.?Neurologic:?Dizziness?denies.?Fainting?denies.?Headache?denies.? * Medical History:? * Surgical History:? * Hospitalization/Major Diagno stic Procedure:? * Family History:?Father: dece ased 78 yrs.?Mother: 62 yrs.?1 daughter(s) . .? father, accident mother,lung cancer, No pertinent family medical history, No pertinent family medical history. * Social History:?Tobacco Use:?Tobacco Use/Smoking?Patient is a?former smoker,?How long has it been since you last smoked??> 10 years,?Additional Findings: Tobacco Non-User?Former smoker, currently using no form of tobacco.?Drugs/Alcohol:?Alcohol Screen?Did you have a drink containing alcohol in the past year??No,?Points?0,?Interpretation?Negative.?Miscellaneous:?Caffeine: yes, frequency:, more than 4 cups per day. Children: yes. Community involvements: yes. Exercise: yes, walks 1 mile 3 times a week horseriding. Home smoke detector use: yes. Housing: owning. Living with: spouse. Marital status: . Occupation: retired. Pets: cats: dogs: 2 horses 2 dogs. no Travel outside of the [place]. * Medications:?TakingVitamin D -3 125 MCG (5000 UT) Tablet as directed Orally Calcium 600 MG Tablet 1 tablet with meals Orally Twice a dayMulti-Vitamins - Tablet 1 tablet Orally Once a dayGlucosamine Chondr 500 Complex - Capsule Orally Taking Vitamin D-3 125 MCG (5000 UT) Tablet as directed Orally Taking Calcium 600 MG Tablet 1 tablet with meals Orally Twice a dayTaking Multi-Vitamins - Tablet 1 tablet Orally Once a dayTaking Glucosamine Chondr 500 Complex - Capsule Orally Not- Taking/PRNIbuprofen 600 MG Tablet 1 tablet Orally Three times a dayMeloxicam 7.5 MG Tablet 1 tablet Orally Once a dayAspirin 325 MG Tablet 1 tablet Orally Once a dayMedication List reviewed and reconciled with the patientNot-Taking/PRN Ibuprofen 600 MG Tablet 1 tablet Orally Three times a dayNot-Taking/PRN Meloxicam 7.5 MG Tablet 1 tablet Orally Once a dayNot-Taking/PRN Aspirin 325 MG Tablet 1 tablet Orally Once a dayMedication List reviewed and reconciled with the patient * Allergies:?N.K.D.A.yes[Aller gies Verified] Objective: * Vitals:?Ht: 66.5, Wt:227, BM I:36.09, BP:132/78 weight is down 3 pounds since 06-26-22. * ???Past Orders: ???Lab:Complete Blood Count Auto Diff (Order Date - 06/23/2023) (Collection Date - 06/23/2023) ? Value Reference Range ?White Blood Count 8.3 4. 8-10.8 - X10*3/uL ?Red Blood Count 4.95 4.20 -5.50 - X10*6/uL ?Hemoglobin 14.7 12.0-16.0 - g/dl ?Hematocrit 44.1 37.0-47.0 - % ?Mean Corpuscular Volume 89.1 80.0-98.0 - fL ?Mean Corpuscular Hemoglobin 29.7 27.0-33.0 - pg ?Mean Corpuscular HGB Conc 33.3 31.0-35.0 - g/dl ?Red Cell Distribution Width 12.3 11.0-16.0 - % ?Platelet Count 225 160-4 00 - X10*3/uL ?Mean Platelet Volume 11.7 9.4-12.3 - fL ?Neutrophils Percent Auto 31.5 L 45-73 - % ?Imm Gran Pct Auto 0.2 0. 0-0.4 - % ?Lymphocytes Percent Auto 58.0 H 20-40 - % ?Monocytes Percent Auto 7.3 2-11 - % ?Eosinophils Percent Auto 2.2 0-4 - % ?Basophils Percent Auto 0.8 0-2 - % ?NRBC Pct Auto 0.0 0.0-0. 2 - /100WBC ?Neutrophils Absolute Auto 2.6 2.0-8.3 - x10*3/uL ?Imm Gran Abs Auto 0.02 0. 00-0.03 - X10*3/uL ?Lymphocytes Absolute Auto 4.8 1.2-4.9 - X10*3/uL ?Monocytes Absolute Auto 0.6 0.1-1.2 - X10*3/uL ?Eosinophils Absolute Auto 0.2 0.0-0.4 - X10*3/uL ?Basophils Absolute Auto 0.1 0.0-0.2 - X10*3/uL ?NRBC Abs Auto 0.000 0.0-0. 012 - X10*3/uL ???Lab:Comprehensive Shirley. P sarita Fast (Order Date - 06/23/2023) (Collection Date - 06/23/2023) ? Value Reference Range ?Sodium 142 135-145 - mmo l/L ?Bilirubin Total 0.3 0.0- 1.0 - mg/dL ?Aspartate Amino Transferase 24 5-31 - U/L ?Alanine Aminotransferase 25 0-31 - U/L ?Total Protein 7.2 6.5-8. 0 - g/dL ?Albumin Level 4.1 3.5-5. 0 - g/dL ?Alkaline Phosphatase 97 39-117 - U/L ?Potassium 4.2 3.3-5.1 - mmol/L ?Chloride 111 H 96-108 - mm ol/L ?Carbon Dioxide 23 22-29 - mmol/L ?Anion Gap 12 12-20 - ?Blood Urea Nitrogen 14 9-16 - mg/dL ?Creatinine 0.74 0.5-1.4 - mg/dL ?Estimated Glomerular Filt Rate > 60 - ?Glucose Fasting 88 60-9 9 - mg/dL ?Calcium 9.4 8.4-10.2 - m g/dL ???Lab:Lipid Panel (Order Da te - 06/23/2023) (Collection Date - 06/23/2023) ? Value Reference Range ?Triglycerides 140 <150 - mg/dL ?Cholesterol 211 H <200 - m g/dL ?LDL Cholesterol Calculated 140 H <100 - mg/dL ?HDL Cholesterol 43 >40 - mg/dL ???Lab:UA ClnCatch+Micro w/r flx Cult (Order Date - 06/23/2023) (Collection Date - 06/23/2023) ? Value Reference Range ?Color Urine Yellow - ?Appearance Urine Clear - ?PH 5.5 5.0-9.0 - ?Glucose Urine UA Negative Neg ative - mg/dL ?Urine Blood Negative Negative - ?Specific [place] - Urine 1.020 1.005-1.025 - ?Urine Protein Negative Neg-Tr bogdan - mg/dL ?Urine Ketones Negative Negati ve - mg/dL ?Nitrite Urine Negative Negati ve - ?Leukocyte Esterase Urine Small (1+) A Negative - ?RBC Urine 0-2 0-2 - /HPF ?WBC Urine 0-5 0-5 - /HPF ?Squamous Epithelial Cell Urine 6-10 0-2 - /HPF ?Bacteria Urine None Seen None Seen - ?Hyaline Casts Urine 0-2 0-2 - /LPF * Examination: ???General Examination: ?GENERAL APPEARANCE:?well developed, well nourished, in no acute distress.?HEAD:?normocephalic, atraumatic.?EYES:?pupils equal, round, reactive to light and accommodation, sclera non-icteric.?EARS:?normal.?ORAL CAVITY:?mucosa moist.?THROAT:?clear.?NECK/THYROID:?neck supple, full range of motion, no cervical lymphadenopathy, no bruits.?SKIN:?warm and dry, no suspicious lesions.?HEART:?regular rate and rhythm, S1, S2 normal, no murmurs.?LUNGS:?clear to auscultation bilaterally.?BREASTS:?No mass, no lump.?ABDOMEN:?soft, nontender, nondistended, bowel sounds present, normal, no organomegaly , no masses palpable.?RECTAL EXAM:?done by obstetrics gynecology physician.?FEMALE GENITOURINARY:?done by obstetrics gynecology physician.?EXTREMITIES:?no clubbing, cyanosis, or edema.?NEUROLOGIC:?nonfocal, motor strength normal upper and lower extremities, sensory exam intact.? Assessment: * Assessment: 1.?Annual physical exam - Z0 0.00 (Primary)?2.?Lymphocytosis - D72.820?3.?Pure hypercholesterolemia - E78.00?4.?Depression screening - Z13.31? Plan: * Treatment: 2.?Lymphocytosis? Notes: stable, will continue to monitor.?? 3.?Pure hypercholesterolemia ? Notes: stable, will continue current regiment.?? 4.?Depression screening? Notes: negative screen.?? * Procedure Codes:? * * Sign off status: Completed true * Provider:?Clark Mejía MD Date:?0 06/30/2023 Generated for Stefano moyer/Dinora/eTransmitting on:?07/21/2024 12:52 PM EST History and Physical Notes * HPI (History of Present Illness) Category Sub-Category Detail Notes Category Not es Symptom(s) patient is a 67 yo female here for annual visit with review of recent labs and follow up of chronic issues. Depression Screening PHQ-9 Little inte rest or pleasure in doing things: Not at all Feeling down, depressed, or hopeless: No t at all Trouble falling or staying asleep, or sl eeping too much: Not at all Feeling tired or having little energy: N ot at all Poor appetite or overeating: Not at all Feeling bad about yourself o r that you are a failure, or have let yourself or your family down: Not at all Trouble concentrating on thi ngs, such as reading the newspaper or watching television: Not at all Moving or speaking so slowly that other people could have noticed; or the opposite, being so fidgety or restless that you have been moving around a lot more than usual: Not at all Thoughts that you would be b ailyn off or of hurting yourself in some way: Not at all Total Score: 0 Interpretation and Intervention Depression Ryanne bowers Findings: Negative Follow-Up for Depression: : review of PH Q-9 found negative result, no follow-up needed SDOH Questions SDOH Questions In the past year have you been worried about losing housing?: No In the past year have you or any family members you live with been unable to get any of the following when it was really needed? Check all that apply:: None Fall Risk History Have you had any falls with injury i n the past year?: No Have you had two or more falls in the st year?: No Communication Needs Communication Needs Does the patient have a hearing impairment: No Does the patient have a vision impairmen t?: Yes ?If yes, what is the vision impairment?: Contact Lenses Does the patient have a cognition impair ment?: No Examination Category Sub-Category Detail Notes Category Not es General Examination GENERAL APPEARANCE: well dev eloped, well nourished, in no acute distress HEAD: normocephalic, atrau matic EYES: pupils equal, round, reactive to light and accommodation, sclera non- icteric EARS: normal THROAT: clear NECK/THYROID: neck supple, full ra nge of motion, no cervical lymphadenopathy, no bruits HEART: regular rate and rhy thm, S1, S2 normal, no murmurs LUNGS: clear to auscultatio n bilaterally ABDOMEN: soft, nontender, non distended, bowel sounds present, normal, no organomegaly , no masses palpable NEUROLOGIC: nonfocal, motor stre ngth normal upper and lower extremities, sensory exam intact SKIN: warm and dry, no donna picious lesions EXTREMITIES: no clubbing, cyanosi s, or edema BREASTS: No mass, no lump RECTAL EXAM: done by obstetrics gynecology physician FEMALE GENITOURINARY: done by obstetrics gynecology physician ORAL CAVITY: mucosa moist
--- OUTSIDE RECORDS SUMMARY | 2024-07-21 12:52 | XMS_ITS | Patient Health Record ---
Author Organization [facility] Address [address] [place] [address] Care Team Providers Care Customer Support Associate Name Role Phone Alfonzo CORTES, Clark Primary Care Provider Osvaldo Rodriges Jr [phone] ALLERGIES No Known Allergies REASON FOR REFERRAL No Information MEDICATIONS Medication SIG (Take, Route, Frequency, Duration) Notes Start Date End Date Status MiraLax (colon prep) 17 GM/SCOOP mixed with Gatorade or Crystal Light Orally begin at 5:00 p.m. the day before the procedure for 1 day 01/21/2021 Active IMMUNIZATIONS Vaccine Route Administration Date Status Comme nts Influenza Unknown 01/21/2021 Administered SOCIAL HISTORY Sex Assigned At : Social History Observation Description Sex Assigned At Unknown PROBLEMS Problem Type ICD Code Onset Dates Problem Status W/U Status Risk SNOMED Code Notes Problem Colon cancer screening (Z12.11) Active confirmed 396589475 Problem Personal history of colonic polyps (Z86.010) Active confirmed 478374945 Problem Encounter for other preprocedural examination (Z01.818) Active confirmed 729038779 PLAN OF TREATMENT Future Test Test Name Order Date COLONOSCOPY 08/01/2015 COLONOSCOPY 01/21/2021 Insurance Providers Payer Name Payer Address Payer Phone Subscriber Number Group Number Insured Name Patient Relationship to Insured Coverage Start Date Coverage End Date [facility] [address] [address] [place] [address] [phone] [id number] PETER RODRIGUEZ Self - patient is the insured [employer] [address] [place] [address] [id number] PETER RODRIGUEZ Self - patient is the insured MEDICAL (GENERAL) HISTORY Medical History History ICD Code colonoscopy 10/10/15, serrate d adenoma less than 10 mm, five-year followup recommended degenerative joint disease Surgical History Surgery Date(Month/Year) left knee surgery pelvis fracture
--- OUTSIDE RECORDS SUMMARY | 2024-07-21 12:52 | XMS_ITS | Data Portability ---
Author Organization [place] [facility], [facility] Address [address] [place] [address] Assessment No assessment recorded. Plan of Treatment Reminders Order Date Submit Date Provider Last Modified By Organization Details Last Modified Time Details Appointments POST OP 15 2024 10:15A M Kathy Crowe MD Not available Not available Not available Lab None recorded. Referral physical therapist referral - Right insertion al Achilles reconstru ction, possible flexor hallucis longus transfer 03/17/242024 025 [email or web address] Not available 06/20/2024 14:10:26 Procedures None recorded. Surgeries orthopaed ic surgery (SURG) [email or web address] [place] [address], [address] [place], [address], 06/21/2024 08:14:54 Imaging None recorded. Medication Orders None recorded. Patient TargetsNo targets recorded. Patient Instructions Encounter Date Encounter Id Patient Instructions Last Modified By Organization Details Last Modified Time 07/18/[id number] cast removal* [email or web address] Not available 0 07/18/2024 10:15:14 application of cast, short leg cast* [email or web address] Not available 07/18/2024 10:15:14 Reason for Referral Physical Therapist Referral for Right Achilles tendinitis Right insertional Achilles reconstruction, possible flexor hallucis longus transfer 03/17/24 Referring Physician: Kathy Crowe, Orthopedic Surgery, Encounter Date: 06/17/2024 Problems Name Problem SNOMED Code Status Onset Date Resolution Date Notes Provider Name and Address Organization Details Recorded Time Trochanteri c bursitis of right hip 9031326562106 00 Active 2023 Amber Nguyễn i, PA-C [address], [place], [address], [facility] 13:26:49 Problem Notes None recorded. Procedures Surgical History Date Name Laterality Status Provider Name and Address Organization Details Recorded Time 07/04/19 Cast_Short Leg_11+ active Sandra Garcia [facility] 07/04/2024 11:00:44 03/25/20 24 Splint_Short Leg Plaster_11+ completed Abbi Navarrete [facility] 03/25/2024 09:14:32 03/17/20 24 ORTHOPAEDIC SURGERY (SURG) completed PATRICIA MCDERMOTT [facility] 03/31/2024 10:25:41 11/02/19 24 JZHip Inj completed Amber Olivo PA-C [address], [place], [address], [facility] 11/02/2023 13:26:43 Imaging Results None recorded. Procedure Notes None recorded. Medical Equipment None Reported. Allergies No known drug allergies Medications Name Sig Start Date Stop Date Status Note LastModified by Organization Details LastModified Time ondansetron HCl 4 mg tablet 1 TABLET BY MOUTH EVERY 8 HOURS,X7 DAYS active Not Available Not Available No t Available meloxicam 7.5 mg tablet TAKE 1 TABLET BY MOUTH TWICE A DAY active Not Available Not Available No t Available oxycodone 5 mg tablet TAKE 1 TO 2 TABLETS BY MOUTH EVERY 4 TO 6 HOURS NEEDED SEVERE PAIN active Not Available Not Available No t Available diclofenac 1 % topical gel DIRECTED 1-3 GRAMS TO AFFECTED AREA 3-4 TIMES A DAY active Not Available Not Available No t Available Vitals Date Recorded Body height Body mass index (BMI) Body weight Provider Name and Address Organization Details Last Updated DateTime 05/12/2024 167.64 cm 37.1 kg/m2 160431.25 g Corina carrasco [facility] 05/12/2024 10:52:33 Date Recorded Body height Body mass index (BMI) Body weight Provider Name and Address Organization Details Last Updated DateTime 06/17/2024 167.64 cm 37.1 kg/m2 261512.25 g Cornia carrasco [facility] 06/17/2024 10:44:54 Date Recorded Body height Body mass index (BMI) Body weight Provider Name and Address Organization Details Last Updated DateTime 06/20/2024 167.64 cm 37.1 kg/m2 414238.25 g Corina carrasco [facility] 06/20/2024 14:51:20 Date Recorded Body height Body mass index (BMI) Body weight Provider Name and Address Organization Details Last Updated DateTime 07/18/2024 167.64 cm 37.1 kg/m2 967314.25 g HOWARD POSADAS [facility] 07/18/2024 09:12:30 Social History None recorded. Functional Status None recorded. Mental Status None recorded. Family History Nothing Reported. Medical History No medical history recorded. Gynecological HistoryNo gynecological history recorded. Obstetrics History GPAL:G 0 P 0 0 0 0 Past Encounters Encounter ID Performer Location Encounter Start Date Encounter Closed Date Diagnosis/Indication Diagnosis SNOMED-CT Code Diagnosis ICD10 Code Diagnosis Note [id number] SANDEEP Hammond [address] [place] [address] 11/02/2023 14:30:52 11/10/2023 15:54:39 Trochanteric bursitis of right hip 9963001990 28563 M70.61 [id number] MD Tala Cornell [address] [place] [address] 02/11/2024 08:58:23 03/03/2024 13:20:22 Foot pain 34156661 M79.673 Left Achil les tendinitis 6831970509 05039 M76.62 Right Achi lles tendinitis 3803758371 39303 M76.61 Calcaneal spur of right foot 9837438156 77313 M77.31 Calcaneal spur of left foot 0050429714 12384 M77.32 [id number] MD Tala Cornell [address] [place] [address] 03/25/2024 08:31:35 03/25/2024 09:15:22 Postoperative visit 911951857 Z48.89 [id number] Karmen Yang PA-C [place] [address] [place] [address] 04/07/2024 08:27:50 04/27/2024 10:45:22 Postoperative visit 606936116 Z48.89 [id number] Kathy Crowe MD [facility] [address] [place] [address] 04/29/2024 08:30:26 06/02/2024 11:48:08 Postoperative visit 353119311 Z48.89 Right Achi lles tendinitis 3715436092 33455 M76.61 Calcaneal spur of right foot 6013896560 05642 M77.31 [id number] Kathy Crowe MD [facility] [address] [place] [address] 05/12/2024 10:02:52 06/08/2024 14:04:40 Postoperative visit 321226918 Z48.89 Right Achi lles tendinitis 3668080802 02632 M76.61 Calcaneal spur of right foot 3963385870 37269 M77.31 [id number] Kathy Crowe MD [facility] - [facility] [address] [place] [address] 06/17/2024 10:34:35 06/30/2024 12:51:58 Right Achilles tendinitis 3642127926 47728 M76.61 Calcaneal spur of right foot 9062080590 61019 M77.31 [id number] Kathy Crowe MD [facility] - [facility] [address] [place] [address] 06/20/2024 14:38:44 07/04/2024 15:19:53 Right Achilles tendinitis 4844657382 78847 M76.61 Calcaneal spur of right foot 8841775930 77841 M77.31 Rupture of right Achilles tendon 1465873276 2415541 S86.011A [id number] Sandra Garcia [facility] [address] [place] [address] 07/04/2024 10:16:00 07/04/2024 11:01:17 Strain of right Achilles tendon 4844308060 9722459 S86.011A [id number] SANDEEP Gong [address] [place] [address] 07/18/2024 09:04:22 07/18/2024 10:20:40 Rupture of right Achilles tendon 3144729409 8040209 S86.011A Health Concerns Section Related Observation LastModified by Organization Detai ls LastModified Time None Recorded Concern Status LastModified by Organization Details LastModified Time None Recorded Advance Directives Directive None Recorded Payers Encounter Date Sequence Insurance Name Policy Number Policy Mcdonald Covered Member ID Mdconald Member ID Guarantor Name 05/12/2024 1 [facility] (MEDICARE REPLACEMENT/A DVANTAGE - PPO) [id number] Nadia Lee [id number] Nadia Lee 05/12/2024 2 [employer] (MEDICARE SUPPLEMENT) Nadia Lee [id number] Nadia Lee 06/17/2024 1 [facility] (MEDICARE REPLACEMENT/A DVANTAGE - PPO) [id number] Nadia Lee [id number] Nadia Lee 06/17/2024 2 [employer] (MEDICARE SUPPLEMENT) Nadia Lee [id number] Nadia Lee 06/20/2024 1 [facility] (MEDICARE REPLACEMENT/A DVANTAGE - PPO) [id number] Nadia Lee [id number] Nadia Lee 06/20/2024 2 [employer] (MEDICARE SUPPLEMENT) Nadia Lee [id number] Nadia Lee 07/18/2024 1 [facility] (MEDICARE REPLACEMENT/A DVANTAGE - PPO) [id number] Nadia Lee [id number] Nadia Lee 07/18/2024 2 [employer] (MEDICARE SUPPLEMENT) Nadia Lee [id number] Nadia Lee Notes Date Note Type Note Provider Name and Address Organization Details Recorded Time text/html Chief complaint: Status post right insertional Achilles reconstruction; date of surgery 03/17/2024 History of present illness: Patient presents today for follow-up evaluation. She has been full weightbearing in the cam boot with [address]. She is now 8 weeks out from surgery. She has also been walking around her home in her regular shoe, without the boot on. Although she was given a physical therapy prescription at last visit 2 weeks ago, she has not yet set up any visits. On presentation today she denies any pain. Physical exam:Patient in no acute distress, alert and oriented. Mood and affect appropriateFocused examination right lower extremity surgical incision is fully healed There is no tenderness overlying her Achilles reconstruction Resting plantarflexion angle of the ankle is maintainedCompression of the calf elicits plantarflexion of the ankle, indicating continuity of repair She is grossly neurovascular intact with motor and sensation intact in all distributionsToes are warm and well-perfused with palpable DP and PT pulses Imaging: No new imaging obtained in clinic today Impression:? Status post right insertional Achilles reconstruction; date of surgery 03/17/2024 Plan:? 1 wedge was removed from the boot in clinic today. There is now 1 single wedge remaining plus the top cup ? I have encouraged the patient to set up her physical therapy visits to begin as soon as possible ? The initial goal with physical therapy will be to transition from the cam boot with a heel lift to a sneaker with a 1 cm heel lift. She was given a prescription for a 1 cm heel lift today in office ? We will see her back in office in 1 month to evaluate her progress Kathy Crowe MD [address] [place] [address] [address], [place], [address], [facility] 05/14/2024 20:09:14 5 text/html Chief complaint: Status post right insertional Achilles reconstruction; date of surgery 03/17/2024 History of present illness: Patient presents today for follow-up evaluation. She is now just about 12 weeks out from surgery. She presents today ambulating in a sneaker with a heel lift. She reports she fully transitioned out of the boot about 2 weeks ago. She continues to work with physical therapy. On presentation today she denies any pain at her Achilles reconstruction site. She is having some discomfort along the peroneal tendons that worsens with prolonged weightbearing activity. This is relatively recent in onset and she believes it started when she went on some short walks on uneven ground. Physical exam:Patient in no acute distress, alert and oriented. Mood and affect appropriateFocused examination right lower extremity surgical incision is fully healedThere is no tenderness overlying her Achilles reconstruction Resting plantarflexion angle of the ankle is maintainedCompression of the calf elicits plantarflexion of the ankle, indicating continuity of repairMild tenderness overlying the peroneal tendons. No pain with resisted eversion She is grossly neurovascular intact with motor and sensation intact in all distributionsToes are warm and well-perfused with palpable DP and PT pulses Imaging: No new imaging obtained in clinic today Impression:? Status post right insertional Achilles reconstruction; date of surgery 03/17/2024-Right peroneal tendinitis Plan:? I reviewed today's physical examination findings with the patient. It is very reassuring that she has no symptoms overlying her insertional reconstruction. I suspect her peroneal tendon symptoms will subside as her deconditioning improved. I suspect her symptoms are simply related to increased stress on the peroneal tendons as she has begun weaning from the cam boot ? I have advised her to continue with physical therapy and to continue working on ambulating in her sneaker ? We will see her back in office in about 4 weeks Kathy Crowe MD [address] [place] [address] [address], [place], [address], [facility] 06/19/2024 14:41:28 5 text/html Chief complaint: Acute onset right ankle pain Prior procedures: Status post right insertional Achilles reconstruction; date of surgery 03/17/2024 History of present illness:Cata presents today for evaluation of an acute injury. Patient reports she was walking in her yard 1 day ago, stumbled over a raised patch of grass, and sustained a hyperextension injury to the right ankle. This resulted in significant increase in pain in the region of the Achilles as well as in the calf. She was seen at [facility] where imaging was obtained and reportedly negative for fracture. She put herself back into the Achilles boot with a single lift in place. Today she reports her pain is slightly improved. She does still have some mild pain in the region of the Achilles midsubstance. Physical exam:Patient in no acute distress, alert and oriented. Mood and affect appropriateFocused examination right lower extremity surgical incision is fully healedAnd there is new focal swelling at the region of her insertional reconstruction and there is a palpable gap at the distal aspect of the Achilles There is decreased resting plantarflexion angle of the ankle and compression of the calf fails to elicit plantarflexion ankle, indicating loss of continuity of the Achilles tendonn She is grossly neurovascular intact with motor and sensation intact in all distributionsToes are warm and well-perfused with palpable DP and PT pulses Imaging: No new imaging obtained in clinic today Impression:? Status post right insertional Achilles reconstruction; date of surgery 03/17/2024-Acute rupture of right insertional Achilles reconstruction with likely avulsion of the Achilles off of its insertion on the calcaneus Plan:? I reviewed today's physical examination findings with the patient. She very clearly has sustained a new rupture of the Achilles tendon. This likely involves the Achilles insertion as this is currently a weak point of the tendon. From a treatment standpoint, I am not optimistic the patient would have good healing with nonsurgical treatment as we do palpate some retraction of the tendon. She understands that a revision insertional reconstruction would possibly include a gastroc recession and possible flexor houses longus tendon transfer. I do think that a revision reconstruction is likely the best way to restore normal overall function of the Achilles tendon as well as plantarflexion strength of the right lower extremity. I do not think she would have pain if we were to treat this nonsurgically but I fairly certain she would have weakness that compromises her function ? After lengthy discussion the patient indicated she would like to proceed with revision surgery ? Operative plan will be for right revision insertional Achilles reconstruction, possible gastroc recession, possible flexor houses longus tendon transfer Kathy Crowe MD [address] [place] [address] [address], [place], [address], [facility] 06/20/2024 16:23:23 5 text/html I am seeing this patient under the supervision of Dr. Will, who was available but who did not see the patient. CHIEF COMPLAINT: Status post right extensive Achilles tenolysis and debridement, revision calcaneal exostectomy, removal of hardware calcaneus, FHL transfer to the calcaneus, revision insertional Achilles reconstruction. Date of surgery 06/23/2024 HPI: Patient is a 69-year-old female presenting today about 3 weeks status post surgery as above. She has been doing fairly well since surgery. Has been nonweightbearing in an equinus cast. Compliant with nonweightbearing status. Taking aspirin for DVT prophylaxis. Denies any interval trauma. Denies any fevers, chills, or paresthesias. PFMSH, Meds and ROS reviewed, updated and signed by me, and is located in the patient's chart.PHYSICAL EXAMINATION: The patient is well appearing and in no apparent distress. Alert and oriented x 3. Examination of her right ankle reveals well healing surgical incision with sutures in place. Well-maintained plantarflexion alignment noted to the ankle. Achilles tendon is palpably intact calf with normal Sauer test. Soft, nontender. Sensation intact to light touch in the right lower extremity. IMPRESSION: Status post right extensive Achilles tenolysis and debridement, revision calcaneal exostectomy, removal of hardware calcaneus, FHL transfer to the calcaneus, revision insertional Achilles reconstruction. Date of surgery 06/23/2024 PLAN: Discussed the findings and situation with the patient today. he seems be doing fairly well overall. Sutures were removed. She was placed into an equinus cast today. She will continue nonweightbearing on the right lower extremity. She will follow-up in 3 weeks for potential transition to an Achilles boot. Continue with aspirin for DVT prophylaxis. Call with questions or concerns. Luci Santos PA-C [address] [facility] [address], [place], [address], [facility] 07/18/2024 10:20:39 OBGyn Episode No OBEpisode recorded.
--- OUTSIDE RECORDS SUMMARY | 2024-07-21 12:52 | XMS_ITS ---
Author Organization Clark Mejía MD Address [address] [place], [place] [address] Care Team Providers Care Desktop Publishing Specialist Name Role Phone Clark Mejía Primary Care Provider Results Component Value Reference Range Notes Comprehensive Jefferson. Panel Fa st (Not yet reviewed by provider) Interpretation: Performing Lab:[facility], [address] [place] [address] Notes/Report: Sodium 143 135-145 mmol/L Potassium 4.2 3.3-5.1 mmol/L Chloride 112 96-108 mmol/L Carbon Dioxide 23 22-29 mmol/L Anion Gap 12 12-20 Blood Urea Nitrogen 12 9-16 mg/dL Creatinine 0.71 0.5-1.4 mg/dL Estimated Glomerular Filt Rate > 60 Chronic Kidney Disease: Estimated GFR < 60 mL/min/1.73m2 Severe Kidney Disease: Estimated GFR < 15 mL/min/1.73m2 Glucose Fasting 106 60-99 mg/dL A fasting glucose from 100-125 mg/dl is considered impaired (pre-diabetes). Calcium 9.3 8.4-10.2 mg/dL Bilirubin Total 0.4 0.0-1.0 mg/dL Aspartate Amino Transferase 34 5-31 U/L Alanine Aminotransferase 35 0-31 U/L Total Protein 7.6 6.5-8.0 g/dL Albumin Level 4.1 3.5-5.0 g/dL Alkaline Phosphatase 118 39-117 U/L Lipid Panel Reviewed date:07/21/2024 12:44:16 PM Interpretation: Performing Lab:[facility], [address] [place] [phone] Notes/Report: Triglycerides 171 <150 mg/dL Desirable Triglyceride: less than 150 mg/dL Borderline High Triglyceride 150-199 mg/dL High Triglyceride: 200-499 mg/dL Very High Triglyceride: greater than or equal to 5OO mg/dL Cholesterol 222 <200 mg/dL Desirable Cholesterol: less than 200 mg/dL Borderline High Cholesterol: 200-239 mg/dL High Cholesterol: greater than 239 mg/dL LDL Cholesterol Calculated 148 <100 mg/dL Desirable LDL: less than 100 mg/dL Near Optimal/Above Optimal LDL: 110-129 mg/dL Borderline High LDL: 130-159 mg/dL High LDL: 160-189 mg/dL Very High LDL: greater than or equal to 190 mg/dL HDL Cholesterol 40 >40 mg/dL Desirable HDL: greater than 40 mg/dL Note: This HDL assay may give artificially low results in patients with liver disease. UA ClnCatch+Micro w/rflx Cul t Reviewed date:07/21/2024 12:46:42 PM Interpretation: Performing Lab:[facility], [address] [place] [phone] Notes/Report: Urine, Clean Catch Color Urine Yellow Appearance Urine Clear PH 5.0 5.0-9.0 Glucose Urine UA Negative Negative mg/dL Urine Blood Negative Negative Specific [place] - Urine 1.020 1.005-1.025 Urine Protein Negative Neg-Trace mg/dL Urine Ketones Negative Negative mg/dL Nitrite Urine Negative Negative Leukocyte Esterase Urine Negative Negative RBC Urine 0-2 0-2 /HPF WBC Urine 0-5 0-5 /HPF Squamous Epithelial Cell Urine 3-5 0-2 /HPF Bacteria Urine None Seen None Seen Hyaline Casts Urine 0-2 0-2 /LPF REASON FOR VISIT yearly fasting labs Medications Medication SIG (Take, Route, Frequency, Duration) Notes Start Date End Date Status Meloxicam 7.5 MG 1 tablet Orally Once a day for 30 day(s) Not-Taking Ibuprofen 600 MG 1 tablet Orally Thre e times a day Not-Taking Aspirin 325 MG 1 tablet Orally Once a day for 30 day(s) Not-Taking Glucosamine Chondr 500 Complex - Orally Active Multi-Vitamins - 1 tablet Orally Once a day Active Calcium 600 MG 1 tablet with meals Orally Twice a day for 30 day(s) Active Vitamin D-3 125 MCG (5000 UT) as directed Orally Active Encounters Encounter Location Date Provider Diagnosis Clark Mejía MD [address] [place] [address] [place] [phone] 07/21/2024 Clark Mejía Blood tests for rout ine general physical examination Z00.00 ; Lymphocytosis D72.820 and Pure hypercholesterolemia E78.00 Assessments Encounter Date Diagnosis (ICD Code) Assessment Notes Treatment Notes Treatment Clinical Notes Section Notes 07/21/2024 Blood tests for rout ine general physical examination (ICD-10 - Z00.00) 07/21/2024 Lymphocytosis (ICD-1 0 - D72.820) 07/21/2024 Pure hypercholesterolemia (ICD-10 - E78.00) Plan Of Treatment Pending Test Test Name Order Date Complete Blood Count Auto Diff 5 Comprehensive Jefferson. Panel Fast 5 Next Appt Details Provider Name:Clark Llamas ier, 07/28/2024 11:00:00 AM, [address] [place] [address], [address] [facility], [place], [place], [id number], Progress Notes * aNdia LEE LDOB:1955 (69 yo F)Acc No.[id number]:07/21/2024 Progress Note Patient:?Nadia LEE Provider:?Clark Mejía MD :1955???Age:69 Y???Sex:Female D ate:07/21/2024 Address:[address] [place], [place] Subjective: * Chief Complaints: * ???1. Yearly fasting labs. * Medical History:? * Medications:?Taking Vitamin D-3 125 MCG (5000 UT) Tablet as directed Orally , Taking Calcium 600 MG Tablet 1 tablet with meals Orally Twice a day , Taking Multi- Vitamins - Tablet 1 tablet Orally Once a day , Taking Glucosamine Chondr 500 Complex - Capsule Orally , Not-Taking/PRN Ibuprofen 600 MG Tablet 1 tablet Orally Three times a day , Not-Taking/PRN Meloxicam 7.5 MG Tablet 1 tablet Orally Once a day , Not- Taking/PRN Aspirin 325 MG Tablet 1 tablet Orally Once a day Objective: * Vitals:? Assessment: * Assessment: 1.?Blood tests for routine g eneral physical examination - Z00.00 (Primary)???2.?Lymphocytosis - D72.820???3.?Pure hypercholesterolemia - E78.00??? Plan: * Treatment: 2.?Lymphocytosis?LAB: Complete Blood Count Auto Diff ?LAB: Comprehensive [facility]. Panel Fast (Collection Date & Time - 07/21/2024 07:15 AM) ?LAB: Lipid Panel (Collection Date & Time - 07/21/2024 07:15 AM) ?LAB: UA ClnCatch+Micro w/rflx Cult (Collection Date & Time - 07/21/2024 07:15 AM) 3.?Pure hypercholesterolemia ?LAB: Complete Blood Count Auto Diff ?LAB: Comprehensive [facility]. Panel Fast (Collection Date & Time - 07/21/2024 07:15 AM) ?LAB: Lipid Panel (Collection Date & Time - 07/21/2024 07:15 AM) ?LAB: UA ClnCatch+Micro w/rflx Cult (Collection Date & Time - 07/21/2024 07:15 AM) * Procedure Codes:?00914 VENIP UNCT, ROUTINE* * * The named appointment provid er may or may not be the originator of this progress note, and it is not deemed complete until electronically signed by the appointment provider. Sign off status: Pending * Provider:?Clark Mejía MD Date:?0 07/21/2024 Generated for Stefano omyer/Dinora/Callum on:?07/21/2024 12:52 PM EST
--- OUTSIDE RECORDS SUMMARY | 2024-07-21 12:52 | XMS_ITS | Patient Health Record ---
Author Organization Clark Mejía MD Address [address] [place] [phone] Care Team Providers Care Veterinarian Epidemiologist Name Role Phone Clark Mejía Primary Care Provider Allergies No Known Allergies Results Component Value Reference Range Notes XR ankle RT 2V Reviewed date:06/20/2024 02:51:55 PM Interpretation: Performing Lab: Notes/Report: [address] [address] XRay Report Signed Patient: Nadia Lee MR#: [id number] : 1955 Acct:[id number] Age/Sex: 68 / F ADM Date: 06/19/24 Loc: .ED Attending Dr: Ordering Physician: Jeanine Antonio NP Date of Service: 06/19/24 Procedure(s): XR ankle RT 2V Accession Number(s): [id number] cc: Clark Mejía MD; Jeanine Antonio NP CLINICAL HISTORY: fall, lateral swelling and tenderness 3 views right ankle Comparison: None Findings: No fractures, subluxations or dislocations. Ankle mortise intact. Normal plafond. No osteochondral lesions. Calcaneus and subtalar joint intact. Mild degenerative changes involving the talonavicular joint. Plantar calcaneal enthesophyte. There is flattening of the posterior calcaneal tuberosity this may be developmental or from prior surgery clinical correlation. Soft tissue swelling posterolaterally. Normal pre-Achilles fat pad. No radiopaque foreign body. Impression: 1. Soft tissue swelling posterolaterally. Mild degenerative changes. This document has been electronically signed by: Nicholas Patton MD on 06/19/2024 09:51:48 Dictated By: Nicholas Patton MD Signed By: <Electronically signed by Nicholas Patton MD in OV> 06/19/2452 DD/ 0 TD/TT: 06/19/24950 Clinical Nursing Manager: [place] [id number] XRay Report Signed Patient: Nadia Lee MR#: [id number] : 1955 Acct:[id number] Age/Sex: 68 / F ADM Date: 06/19/24 Loc: HO.ED Attending Dr: Ordering Physician: Jeanine Antonio NP Date of Service: 06/19/24 Procedure(s): XR ank le RT 2V Accession Number(s): [id number] cc: lCark Mejía MD; Jeanine Antonio NP CLINICAL HISTORY: fa ll, lateral swelling and tenderness 3 views right ankle Comparison: None Findings: No fractures, subluxations or dislocations. Ankle mortise intact . Normal plafond. No osteochondral lesions. Calcaneus and subtal ar joint intact. Mild degenerative changes involving the talonavicular joint. Plantar calcaneal enthesophyte. There is flattening of the posterior calcaneal tuberosity this may be developmental or from prior surgery clinical correlation. Soft tissue swelling posterolaterally. Normal pre-Achilles fat pad. No radiopaque foreig n body. Impression: 1. Soft tissue swell ing posterolaterally. Mild degenerative changes. This document has be en electronically signed by: Nicholas Patton MD on 06/19/2024 09:51:48 Dictated By: Nicholas Patton MD Signed By: <Electronically signed by Nicholas Patton MD in OV> 06/19/24951 DD/ 0 TD/TT: 06/19/24950 Clinical Nursing Manager: Delisa Glez [facility] (Not yet reviewed by provider) Interpretation: Performing Lab:[facility], [address] [place] [phone] Notes/Report: Sodium 143 135-145 mmol/L Potassium 4.2 [...] Panel Reviewed date:07/21/2024 12:44:16 PM Interpretation: Performing Lab:[facility], [address] [place] [phone] Notes/Report: Triglycerides 171 <150 mg/dL Desirable Triglyceride: [...] t Reviewed date:07/21/2024 12:46:42 PM Interpretation: Performing Lab:[facility], [address] [place] [phone] Notes/Report: Urine, Clean Catch Color Urine Yellow Appearance Urine Clear PH 5.0 5.0-9.0 Glucose Urine UA Negative Negative mg/dL Urine Blood Negative Negative Specific [place] - Urine 1.020 1.005-1.025 Urine Protein Negative Neg-Trace mg/dL Urine Ketones Negative Negative mg/dL Nitrite Urine Negative Negative Leukocyte Esterase Urine Negative Negative RBC Urine 0-2 0-2 /HPF WBC Urine 0-5 0-5 /HPF Squamous Epithelial Cell Urine 3-5 0-2 /HPF Bacteria Urine None Seen None Seen Hyaline Casts Urine 0-2 0-2 /LPF Reason For Referral No Information Medications Medication SIG (Take, Route, Frequency, Duration) Notes Start Date End Date Status Meloxicam 7.5 MG 1 tablet Orally Once a day for 30 day(s) Not-Taking Ibuprofen 600 MG 1 tablet Orally Thre e times a day Not-Taking Aspirin 325 MG 1 tablet Orally Once a day for 30 day(s) Not-Taking Calcium 600 MG 1 tablet with meals Orally Twice a day for 30 day(s) Active Vitamin D-3 125 MCG (5000 UT) as directed Orally Active Glucosamine Chondr 500 Complex - Orally Active Multi-Vitamins - 1 tablet Orally Once a day Active Immunizations Vaccine Route Administration Date Status Comme nts Fluarix Quadrivalent IM Intramuscular 06/26/2014 Administe red Fluarix Quadrivalent IM Intramuscular 01/30/2017 Administe red Fluarix Quadrivalent Unknown 02/28/2019 Administered Narciso GUTIÉRREZ'S PPSV23 (Pnemovax) IM Intramuscular 12/20/2019 Administered Influenza High Dose Unknown 02/24/2020 Administered Gisela mix's SARS-COV-2 Pfizer Unknown 08/07/2020 Administered SARS-COV-2 Pfizer Unknown 08/28/2020 Administered Influenza High Dose Unknown 04/16/2022 Administered Shingrix Unknown 03/02/2018 Refused Flu Vaccine Unknown 06/26/2014 Pending Social History Tobacco Use: Social History Observation [...] ast year? No Points 0 Interpretation Negative Problems Problem Type SNOMED Code ICD Code Onset Dates Problem Status W/U Status Risk Notes Problem 53276329 Lymphocytosis (D72.820) Active confirm ed Problem 921145805 Body mass index (BMI) 38.0-38.9, adult (Z68.38) Active confirmed Problem 941682163 Non morbid obesi ty due to excess calories (E66.09) Active confirmed Problem 372901243 History of hemat uria (Z87.448) Active confirmed Problem 274000037 Pure hypercholesterolemia (E78.00) Active confirmed Encounters Encounter Location Date Provider Diagnosis Clark Mejía MD [address] [place], [place] [phone] 07/21/2024 Clark Mejía Blood tests for rout ine general physical examination Z00.00 ; Lymphocytosis D72.820 and Pure hypercholesterolemia E78.00 Clark Mejía MD [address] [place] [address] Drive [address] [place], [place] [phone] 06/20/2024 Clark Mejía Assessments Encounter Date Diagnosis (ICD Code) Assessment Notes Treatment Notes Treatment Clinical Notes Section Notes 07/21/2024 Blood tests for rout ine general physical examination (ICD-10 - Z00.00) 07/21/2024 Lymphocytosis (ICD-1 0 - D72.820) 07/21/2024 Pure hypercholesterolemia (ICD-10 - E78.00) Plan Of Treatment Pending Test Test Name Order Date Electrocardiogram (EKG) 11/19/2012 Electrocardiogram (EKG) 01/30/2017 Complete Blood Count Auto Diff 5 Comprehensive [place]. Panel Fast 5 Future Test Test Name Order Date BONE DENSITY DEXA 03/21/2018 Next Appt Details Provider Name:Clark stevenson, 07/28/2024 11:00:00 AM, [address], [address], [place], [place], [phone], Insurance Providers Payer Name Payer Address Payer Phone Subscriber Number Group Number Insured Name Patient Relationship to Insured Coverage Start Date Coverage End Date [facility] [employer] [address] [address] [place] [address] [id number] Nadia Lee Self - patient is the insured [facility] [address] [place] [phone] [id number] Joan Lee Spouse - patient is the spouse of the insured Medical (General) History Medical History History ICD Code colonoscopy 02/04/2006; colono scopy done 10/10/15 w/Dr. Ulloa serrated adenom repeated 2020 [employer], Svitlana CRUZ, 09/12 had gu evaluation 2 years ago and didn't want to do any evalual colonoscopy 01/29/21, repeat 7-10yrs
--- OUTSIDE RECORDS SUMMARY | 2024-07-21 12:52 | XMS_ITS ---
Author Organization Clark Mejía MD Address [address] [place], [place] [phone] Care Team Providers Care Mutuel Teller Name Role Phone Clark Mejía Primary Care Provider REASON FOR VISIT ER Encounters Encounter Location Date Provider Diagnosis Clark Mejaí MD [address] [place], [place] [phone] 06/20/2024 Clark Mejía Plan Of Treatment Next Appt Details Provider Name:Clark Llamas ier, 07/28/2024 11:00:00 AM, [address] [place] [address] Drive, [address], [place], [place], [phone], Progress Notes * Nadia LEE LDOB:1955 (68 yo F)Acc No.[id number]:06/20/2024 Patient:?Nadia Lee :1955???Age:68 Y???Sex:Female Address:[place] [address] * true * Date:? Generated for Printi joão/Dinora/eTransmitting on:?07/21/2024 12:52 PM EST
== END 2024-07-21 11:31 | disposition home or self-care (01) ==
LOC: HO.LNP 11:30
PROVIDERS: Visit Provider Internal Medicine
DX: Z00.00 Encounter for general adult medical examination without abnormal findings (principal); D72.820 Lymphocytosis (symptomatic); E78.00 Pure hypercholesterolemia, unspecified
CPT/HCPCS: 80053; 80061; 81001

== ENCOUNTER 2024-07-28 11:00 | Outpatient (REF) | payer OTHER, SELFPAY ==
[2024-07-28 13:12] LABS: MANUAL DIFF FLAG NO
[2024-07-28 13:15] LABS: Basophils Percent Auto 0.5 % (0-2); Eosinophils Absolute Auto 0.2 X10*3/uL (0.0-0.4); Eosinophils Percent Auto 2.4 % (0-4); Hematocrit 43.5 % (37.0-47.0); Hemoglobin 14.5 g/dl (12.0-16.0); Imm Gran Abs Auto 0.02 X10*3/uL (0.00-0.03); Imm Gran Pct Auto 0.3 % (0.0-0.4); Lymphocytes Absolute Auto 4.7 X10*3/uL (1.2-4.9); Lymphocytes Percent Auto 59.3 % (20-40); Mean Corpuscular HGB Conc 33.3 g/dl (31.0-35.0); Mean Corpuscular Hemoglobin 29.1 pg (27.0-33.0); Mean Corpuscular Volume 87.2 fL (80.0-98.0); Mean Platelet Volume 11.2 fL (9.4-12.3); Monocytes Absolute Auto 0.6 X10*3/uL (0.1-1.2); Monocytes Percent Auto 7.4 % (2-11); Neutrophils Absolute Auto 2.4 x10*3/uL (2.0-8.3); Neutrophils Percent Auto 30.1 % (45-73); Platelet Count 223 X10*3/uL (160-400); Red Blood Count 4.99 X10*6/uL (4.20-5.50); Red Cell Distribution Width 12.3 % (11.0-16.0); White Blood Count 7.9 X10*3/uL (4.8-10.8)
--- OUTSIDE RECORDS SUMMARY | 2024-07-28 15:41 | XMS_ITS | Patient Health Record ---
Author Organization [facility] Address [address] [place] [address] Care Team Providers Care Biodiesel Production Associate Name Role Phone Alfonzo CORTES, Clark Primary Care Provider Osvaldo Rodriges Jr [phone] ALLERGIES No Known Allergies REASON FOR REFERRAL [...] Problem Colon cancer screening (Z12.11) Active confirmed 102900315 Problem Personal history of colonic polyps (Z86.010) Active confirmed 715157948 Problem Encounter for other preprocedural examination (Z01.818) Active confirmed 793178722 PLAN OF TREATMENT Future Test Test Name Order Date COLONOSCOPY 08/01/2015 COLONOSCOPY 01/21/2021 Insurance Providers Payer Name Payer Address Payer Phone Subscriber Number Group Number Insured Name Patient Relationship to Insured Coverage Start Date Coverage End Date [facility] [address] [address] [place] [id number] PETER RODRIGUEZ Self - patient is the insured [employer] [address] [place] [id number] PETER RODRIGUEZ Self - patient is the insured MEDICAL (GENERAL) HISTORY Medical History History ICD Code colonoscopy 10/10/15, serrate d adenoma less than 10 mm, five-year followup recommended degenerative joint disease Surgical History Surgery Date(Month/Year) left knee surgery pelvis fracture
--- OUTSIDE RECORDS SUMMARY | 2024-07-28 15:41 | XMS_ITS ---
Author Organization Clark Mejía MD Address [address] [place], [place] [phone] Care Team Providers Care Grab Operator Name Role Phone Clark Mejía Primary Care Provider Results Component Value Reference Range Notes Comprehensive [place]. Panel Fa st Reviewed date:07/22/2024 04:37:20 PM Interpretation: Performing Lab:[facility], [address] [place] [phone] Notes/Report: Sodium 143 135-145 mmol/L Potassium 4.2 [...] Panel Reviewed date:07/21/2024 12:44:16 PM Interpretation: Performing Lab:[facility], [address] [place] [phone] Notes/Report: Triglycerides 171 <150 mg/dL Desirable Triglyceride: [...] t Reviewed date:07/21/2024 12:46:42 PM Interpretation: Performing Lab:[facility], [address] [place] [phone] Notes/Report: Urine, Clean Catch Color Urine Yellow Appearance Urine Clear PH 5.0 5.0-9.0 Glucose Urine UA Negative Negative mg/dL Urine Blood Negative Negative Specific [place] - Urine 1.020 1.005-1.025 Urine Protein Negative [...] Location Date Provider Diagnosis Clark Mejía MD [address] [place] [phone] 07/21/2024 Clark Mejía Blood tests for rout [...] Order Date Complete Blood Count Auto Diff Next Appt Details Provider Name:Clark stevenson, 01/23/2025 11:15:00 AM, [address] [place] [address], [phone], Provider Name:Clark stevenson, 07/25/2025 08:00:00 AM, [address] [place] [address], [phone], Provider Name:Clark stevenson, 08/01/2025 09:30:00 AM, [address] [place] [address], [phone], Progress Notes * Nadia LEE LDOB:1955 (69 yo F)Acc No.[id number]:07/21/2024 Progress Note Patient:?Nadia LEE Provider:?Clark Mejía MD :1955???Age:69 Y???Sex:Female D ate:07/21/2024 Address:[place], [id number] Subjective: * Chief Complaints: * ???1. [...] Complete Blood Count Auto Diff ?LAB: Comprehensive [place]. Panel Fast (Collection Date & Time - 07/21/2024 07:15 AM) ?LAB: Lipid Panel (Collection Date & Time - 07/21/2024 07:15 AM) ?LAB: UA ClnCatch+Micro w/rflx Cult (Collection Date & Time - 07/21/2024 07:15 AM) 3.?Pure hypercholesterolemia ?LAB: Complete Blood Count Auto Diff ?LAB: Comprehensive [place]. Panel Fast (Collection Date & Time - 07/21/2024 07:15 AM) ?LAB: Lipid Panel (Collection Date & Time - 07/21/2024 07:15 AM) ?LAB: UA ClnCatch+Micro w/rflx Cult (Collection Date & Time - 07/21/2024 07:15 AM) * Procedure Codes:?20413 VENIP UNCT, ROUTINE* * * The named appointment provid er may or may not be the originator of this progress note, and it is not deemed complete until electronically signed by the appointment provider. Sign off status: Pending * Provider:?Clark Mejía MD Date:?0 07/21/2024 Generated for Stefano moyer/Dinora/Callum on:?07/28/2024 03:41 PM EST
--- OUTSIDE RECORDS SUMMARY | 2024-07-28 15:41 | XMS_ITS ---
Author Organization Clark Mejía MD Address [address] [place], [place] [phone] Care Team Providers Care Locker Room Clerk Name Role Phone Clark Mejía Primary Care Provider [phone] Allergies No Known Allergies Results Component Value Reference Range Notes Complete Blood Count Auto Di ff (Not yet reviewed by provider) Interpretation: Performing Lab:[facility], [address] [place] [phone] Notes/Report: White Blood Count 7.9 4.8-10.8 X10*3/uL Red Blood Count 4.99 4.20-5.50 X10*6/uL Hemoglobin 14.5 12.0-16.0 g/dl Hematocrit 43.5 37.0-47.0 % Mean Corpuscular Volume 87.2 80.0-98.0 fL Mean Corpuscular Hemoglobin 29.1 27.0-33.0 pg Mean Corpuscular HGB Conc 33.3 31.0-35.0 g/dl Red Cell Distribution Width 12.3 11.0-16.0 % Platelet Count 223 160-400 X10*3/uL Mean Platelet Volume 11.2 9.4-12.3 fL Neutrophils Percent Auto 30.1 45-73 % Imm Gran Pct Auto 0.3 0.0-0.4 % Lymphocytes Percent Auto 59.3 20-40 % Monocytes Percent Auto 7.4 2-11 % Eosinophils Percent Auto 2.4 0-4 % Basophils Percent Auto 0.5 0-2 % NRBC Pct Auto 0.0 0.0-0.2 /100WBC Neutrophils Absolute Auto 2.4 2.0-8.3 x10*3/u L Imm Gran Abs Auto 0.02 0.00-0.03 X10*3/uL Lymphocytes Absolute Auto 4.7 1.2-4.9 X10*3/u L Monocytes Absolute Auto 0.6 0.1-1.2 X10*3/uL Eosinophils Absolute Auto 0.2 0.0-0.4 X10*3/u L Basophils Absolute Auto 0.0 0.0-0.2 X10*3/uL NRBC Abs Auto 0.000 0.0-0.012 X10*3/uL REASON FOR VISIT annual visit/ disuss wt loss medication, Draw CBC tube not labled Medications Medication SIG (Take, Route, Frequency, Duration) Notes Start Date End Date Status Multi-Vitamins - 1 tablet Orally Once a day Active Meloxicam 7.5 MG 1 tablet Orally Once a day for 30 day(s) Not-Taking Aspirin 325 MG 1 tablet Orally Once a day for 30 day(s) Not-Taking Glucosamine Chondr 500 Complex - Orally Active Ibuprofen 600 MG 1 tablet Orally Thre e times a day Not-Taking Calcium 600 MG 1 tablet with meals Orally Twice a day for 30 day(s) Active Vitamin D-3 125 MCG (5000 UT) as directed Orally Active Social History Tobacco Use: Social History Observation [...] Interpretation Negative Vital Signs Blood pressure systolic 142 mm Hg 07/28/19 25 Blood pressure diastolic 84 mm Hg 025 Height 66.5 in 07/28/2024 Weight 228 lbs 07/28/2024 BMI 36.24 kg/m2 07/28/2024 Encounters Encounter Location Date Provider Diagnosis Clark Mejía MD [address] [place] [address] [place] [phone] 07/28/2024 Clark Mejía Lymphocytosis D72.82 0 ; Annual physical exam Z00.00 ; Non morbid obesity due to excess calories E66.09 and Pure hypercholesterolemia E78.00 Assessments Encounter Date Diagnosis (ICD Code) Assessment Notes Treatment Notes Treatment Clinical Notes Section Notes 07/28/2024 Lymphocytosis (ICD-1 0 - D72.820) stable, will continue to monitor 07/28/2024 Annual physical exam (ICD-10 - Z00.00) labs reviewed and discussed with patient 07/28/2024 Non morbid obesity d ue to excess calories (ICD-10 - E66.09) is considering the medicines. gave her the number for the weight loss clinic. 07/28/2024 Pure hypercholesterolemia (ICD-10 - E78.00) stable, will continue current regiment Plan Of Treatment Treatment Notes Assessment Notes Lymphocytosis stable, will continu e to monitor Annual physical exam labs reviewed and d iscussed with patient Non morbid obesity due to excess calorie s is considering the medicines. gave her the number for the weight loss clinic. Pure hypercholesterolemia stable, will c ontinue current regiment Pending Test Test Name Order Date Complete Blood Count Auto Diff Next Appt Details Follow Up: 6 Months, Reason: Provider Name:Clark stevenson, 01/23/2025 11:15:00 AM, [address] [place] [address], [address], [phone], Provider Name:Clark stevenson, 07/25/2025 08:00:00 AM, [address] [place] [address], [address], [phone], Provider Name:Clark stevenson, 08/01/2025 09:30:00 AM, [address] [place] [address], [address], [phone], Progress Notes * Nadia LEE LDOB:1955 (69 yo F)Acc No.[id number]:07/28/2024 Progress Notes Patient:?Nadia LEE Provider:?Clark Mejía MD :1955???Age:69 Y???Sex:Female D ate:07/28/2024 [address] [id number] Subjective: * Chief Complaints: * ???1. Annual visit/ disuss w t loss medication. 2. Draw CBC tube not labled. * HPI: ???Depression Screening:?PHQ-9?Little interest or pleasure [...] of PHQ-9 found negative result, no follow-up needed.?patient is a69 you female here for annual visit with review of reccent lavs and follow up of chronic issues.? here for follow up/ had ruptured achilles. ???Communication Needs:?Communication Needs?Does the patient have a hearing impairment?No,?Does the patient have a vision impairment??Yes,?If yes, what is the vision impairment??Glasses,?Does the patient have a cognition impairment??No.?Fall Risk:?History?Have [...] Check all that apply:?None.?Symptom(s):? patient is a 69 yo female here for annual viait with review of recent labs and follow up of chronic issues. * ROS:?General/Constitutional:?Patient denies?chills, fatigue, fever, headache.?Change in appetite?denies.?Chills?denies.?Fever?denies.?Ophthalmologic:?Blurred vision?denies.?Discharge?denies.?Pain?denies.?ENT:?Patient denies?decreased sense of smell, any loss of taste, sore throat.?Decreased hearing?denies.?Sore throat?denies.?Swollen glands?denies.?Endocrine:?Cold intolerance?denies.?Excessive thirst?denies.?Heat intolerance?denies.?Weight loss?denies.?Respiratory:?Cough?denies.?Shortness of breath at rest?denies.?Shortness of breath with exertion?denies.?Wheezing?denies.?Cardiovascular:?Chest pain at rest?denies.?Chest pain with exertion?denies.?Irregular heartbeat?denies.?Shortness of breath?denies.?Gastrointestinal:?Abdominal pain?denies.?Change in bowel habits?denies.?Diarrhea?denies.?Nausea?denies.?Rectal bleeding?denies.?Vomiting?denies .?Genitourinary:?Blood in urine?denies.?Difficulty urinating?denies.?Frequent urination?denies.?Urinary incontinence?Denies.?Musculoskeletal:?Patient denies?muscle aches.?Painful joints?denies.?Weakness?denies.?Peripheral Vascular:?Patient denies?red and blue toes.?Skin:?Dry skin?denies.?Itching?denies.?Denies?Mole(s),? changes in moles, new moles or any lesions of concern.?Denies?Photosensitivity.?Rash?denies.?Neurologic:?Dizziness?denies.?Fainting?denies.?Headache?denies.? * Medical History:?colonoscopy 02/04/2006; colonoscopy done 10/10/15 w/Dr. Ulloa serrated adenom repeated 2020, [employer], Svitlana CRUZ, 09/12, Had gu evaluation 2 years ago and didn't want to do any evalual, Colonoscopy 01/29/21, repeat 7-10yrs. * Family History:?Father: dece ased 78 yrs.?Mother: [...] day. Children: yes. Community involvements: yes. Exercise: no. Home smoke detector use: yes. Housing: owning. Living with: spouse. Marital status: . Occupation: retired. Pets: cats: dogs: 2 horses 2 dogs. Travel outside of the [place]: no. * Medications:?Taking Vitamin D-3 125 MCG (5000 [...] 1 tablet Orally Once a day , Medication List reviewed and reconciled with the patient * Allergies:?N.K.D.A. Objective: * Vitals:?Ht: 66.5, Wt: 228, B SD:36.24, BP:142/84, Wt-k.42. * ???Past Orders: ???Lab:Comprehensive [place]. P sarita Fast (Order Date - 07/21/2024) (Collection Date & Time - 07/21/2024 07:15 AM) ? Value Reference Range ?Sodium 143 135-145 - mmo l/L ?Bilirubin Total 0.4 0.0- 1.0 - mg/dL ?Aspartate Amino Transferase 34 H 5-31 - U/L ?Alanine Aminotransferase 35 H 0-31 - U/L ?Total Protein 7.6 6.5-8. 0 - g/dL ?Albumin Level 4.1 3.5-5. 0 - g/dL ?Alkaline Phosphatase 118 H 39-117 - U/L ?Potassium 4.2 3.3-5.1 - mmol/L ?Chloride 112 H 96-108 - mm ol/L ?Carbon Dioxide 23 22-29 - mmol/L ?Anion Gap 12 12-20 - ?Blood Urea Nitrogen 12 9-16 - mg/dL ?Creatinine 0.71 0.5-1.4 - mg/dL ?Estimated Glomerular Filt Rate > 60 - ?Glucose Fasting 106 H 60-9 9 - mg/dL ?Calcium 9.3 8.4-10.2 - m g/dL ???Lab:UA ClnCatch+Micro w/r flx Cult (Order Date - 07/21/2024) (Collection Date & Time - 07/21/2024 07:15 AM) ? Value Reference Range ?Color Urine Yellow - ?Appearance Urine Clear - ?PH 5.0 5.0-9.0 - ?Glucose Urine UA Negative Neg ative - mg/dL ?Urine Blood Negative Negative - ?Specific [place] - Urine 1.020 1.005-1.025 - ?Urine Protein Negative Neg-Tr bogdan - mg/dL ?Urine Ketones Negative Negati ve - mg/dL ?Nitrite Urine Negative Negati ve - ?Leukocyte Esterase Urine Negative Negative - ?RBC Urine 0-2 0-2 - /HPF ?WBC Urine 0-5 0-5 - /HPF ?Squamous Epithelial Cell Urine 3-5 0-2 - /HPF ?Bacteria Urine None Seen None Seen - ?Hyaline Casts Urine 0-2 0-2 - /LPF ???Lab:Lipid Panel (Order Da te - 07/21/2024) (Collection Date & Time - 07/21/2024 07:15 AM) ? Value Reference Range ?Triglycerides 171 H <150 - mg/dL ?Cholesterol 222 H <200 - m g/dL ?LDL Cholesterol Calculated 148 H <100 - mg/dL ?HDL Cholesterol 40 L >40 - mg/dL * Examination: ???General Examination: ?GENERAL APPEARANCE:?well developed, [...] organomegaly , no masses palpable.?RECTAL EXAM:?done by clinical partner.?FEMALE GENITOURINARY:?done by clinical partner.?EXTREMITIES:?no clubbing, cyanosis, or edema.?NEUROLOGIC:?nonfocal, motor strength normal upper and lower extremities, sensory exam intact.? Assessment: * Assessment: 1.?Annual physical exam - Z0 0.00 (Primary)???2.?Lymphocytosis - D72.820???3.?Non morbid obesity due to excess calories - E66.09???4.?Pure hypercholesterolemia - E78.00??? Plan: * Treatment: 2.?Lymphocytosis?LAB: Complete Blood Count Auto Diff (Collection Date & Time - 07/28/2024 11:00 AM) Notes: stable, will continue to monitor?? 3.?Non morbid obesity due to excess calories? Notes: is considering the medicines. gave her the number for the weight loss clinic. ?? 4.?Pure hypercholesterolemia ? Notes: stable, will continue current regiment?? * Preventive Medicine:? ??Counseling:?Care goal follow-up plan:?Counseling for abnormal BMI provided?Yes,?Above Normal BMI Follow-up?Giving encouragement to exercise.? * Follow Up:?6 Months * * The named appointment provid er may or may not be the originator of this progress note, and it is not deemed complete until electronically signed by the appointment provider. Sign off status: Pending * Provider:?Clark Mejía MD Date:?0 07/28/2024 Generated for Stefano moyer/Dinora/Judyitting on:?07/28/2024 03:41 PM EST History and Physical Notes * HPI (History of Present Illness) Category Sub-Category Detail Notes Category Not es Symptom(s) patient is a 69 yo female here for annual viait with review of recent labs and follow up of chronic issues Depression Screening PHQ-9 Little inte rest or pleasure in doing things: Not at all patient is a69 you female here for annual visit with review of reccent lavs and follow up of chronic issues. here for follow up/ had ruptured achilles Feeling down, depressed, or hopeless: No t [...] had two or more falls in the pa st year?: No Communication Needs Communication Needs Does the patient have a hearing impairment: No Does the patient have a vision impairmen t?: Yes ?If yes, what is the vision impairment?: Glasses Does the patient have a cognition impair [...] mass, no lump RECTAL EXAM: done by clinical partner FEMALE GENITOURINARY: done by clinical partner ORAL CAVITY: mucosa moist
--- OUTSIDE RECORDS SUMMARY | 2024-07-28 15:41 | XMS_ITS | Patient Health Record ---
Author Organization Clark Mejía MD Address [address] [place], [place] [id number] Care Team Providers Care Bench Molder Name Role Phone Clark Mejía Primary Care Provider Allergies No Known Allergies Results Component Value Reference Range Notes Comprehensive [place]. Panel Fa st Reviewed date:07/22/2024 04:37:20 PM Interpretation: Performing Lab:[facility], [address] [place] [phone] Notes/Report: Sodium 143 135-145 mmol/L Potassium 4.2 [...] Panel Reviewed date:07/21/2024 12:44:16 PM Interpretation: Performing Lab:[facility], [address] [place] [phone] Notes/Report: Triglycerides 171 <150 mg/dL Desirable Triglyceride: [...] t Reviewed date:07/21/2024 12:46:42 PM Interpretation: Performing Lab:[facility], [address] [place] [phone] Notes/Report: Urine, Clean Catch Color Urine Yellow Appearance Urine Clear PH 5.0 5.0-9.0 Glucose Urine UA Negative Negative mg/dL Urine Blood Negative Negative Specific [place] - Urine 1.020 1.005-1.025 Urine Protein Negative Neg-Trace mg/dL Urine Ketones Negative Negative mg/dL Nitrite Urine Negative Negative Leukocyte Esterase Urine Negative Negative RBC Urine 0-2 0-2 /HPF WBC Urine 0-5 0-5 /HPF Squamous Epithelial Cell Urine 3-5 0-2 /HPF Bacteria Urine None Seen None Seen Hyaline Casts Urine 0-2 0-2 /LPF Complete Blood Count Auto Di ff (Not yet reviewed by provider) Interpretation: Performing Lab:[facility], [address] [place] [phone] Notes/Report: White Blood Count 7.9 4.8-10.8 X10*3/uL [...] X10*3/uL NRBC Abs Auto 0.000 0.0-0.012 X10*3/uL XR ankle RT 2V Reviewed date:06/20/2024 02:51:55 PM Interpretation: Performing Lab: Notes/Report: [address] [address] XRay Report Signed Patient: Nadia Lee MR#: [id number] : 1955 Acct:[id number] Age/Sex: 68 / F ADM Date: 06/19/24 Loc: HO.ED Attending Dr: Ordering Physician: Jeanine Antonio NP Date of Service: 06/19/24 Procedure(s): XR ankle RT 2V Accession Number(s): [id number] cc: Clark Mejía MD; Jeanine Antonio NP [...] signed by Nicholas Patton MD in OV> 06/19/24 0952 DD/ 0951 TD/TT: 06/19/2451 Trapper Animal: [place] [address] XRay Report Signed Patient: Nadia Lee MR#: [id number] : 1955 Acct:[id number] Age/Sex: 68 / F ADM Date: 06/19/24 Loc: HO.ED Attending Dr: Ordering Physician: Jeanine Antonio NP Date of Service: 06/19/24 Procedure(s): XR ank le RT 2V Accession Number(s): [id number] cc: Clark Mejía MD; Jeanine Antonio NP [...] in OV> 06/19/24951 DD/ 0 TD/TT: 06/19/24950 Trapper Animal: Reason For Referral No Information Medications Medication SIG (Take, Route, Frequency, Duration) Notes Start Date End Date Status Calcium 600 MG 1 tablet with meals Orally Twice a day for 30 day(s) Active Multi-Vitamins - 1 tablet Orally Once a day Active Vitamin D-3 125 MCG (5000 UT) as directed Orally Active Meloxicam 7.5 MG 1 tablet Orally Once a day for 30 day(s) Not-Taking Aspirin 325 MG 1 tablet Orally Once a day for 30 day(s) Not-Taking Glucosamine Chondr 500 Complex - Orally Active Ibuprofen 600 MG 1 tablet Orally Thre e times a day Not-Taking Immunizations Vaccine Route Administration Date Status Comme [...] Problem Status W/U Status Risk Notes Problem 59310918 Lymphocytosis (D72.820) Active confirm ed Problem 552783725 Body mass index (BMI) 38.0-38.9, adult (Z68.38) Active confirmed Problem 819149467 Non morbid obesi ty due to excess calories (E66.09) Active confirmed Problem 921176203 History of hemat uria (Z87.448) Active confirmed Problem 648465897 Pure hypercholesterolemia (E78.00) Active confirmed Vital Signs Blood pressure diastolic 84 mm Hg 07/28/2024 Height 66.5 in 07/28/2024 Blood pressure systolic 142 mm Hg 07/28/2024 Weight 228 lbs 07/28/2024 BMI 36.24 kg/m2 07/28/2024 Encounters Encounter Location Date Provider Diagnosis Clark Mejía MD [address] [place] [address] Drive [address] [place] [id number] 07/21/2024 Clark Mejía Blood tests for rout ine general physical examination Z00.00 ; Lymphocytosis D72.820 and Pure hypercholesterolemia E78.00 Clark Mejía MD [address] [place] [address] Drive [address] [place] [id number] 07/28/2024 Clark Mejía Lymphocytosis D72.82 0 ; Annual physical exam Z00.00 ; Non morbid obesity due to excess calories E66.09 and Pure hypercholesterolemia E78.00 Clark Mejía MD [address] [place] [address] Drive [address] [place] [id number] 06/20/2024 Clark Mejía Assessments Encounter Date Diagnosis (ICD Code) Assessment Notes Treatment Notes Treatment Clinical Notes Section Notes 07/21/2024 Blood tests for rout ine general physical examination (ICD-10 - Z00.00) 07/28/2024 Lymphocytosis (ICD-1 0 - D72.820) stable, will continue to monitor 07/28/2024 Annual physical exam (ICD-10 - Z00.00) labs reviewed and discussed with patient 07/21/2024 Lymphocytosis (ICD-1 0 - D72.820) 07/28/2024 Non morbid obesity d ue to excess calories (ICD-10 - E66.09) is considering the medicines. gave her the number for the weight loss clinic. 07/21/2024 Pure hypercholesterolemia (ICD-10 - E78.00) 07/28/2024 Pure hypercholesterolemia (ICD-10 - E78.00) stable, will continue current regiment Plan Of Treatment Pending Test Test Name Order Date Electrocardiogram (EKG) 11/19/2012 Electrocardiogram (EKG) 01/30/2017 Complete Blood Count Auto Diff 5 Complete Blood Count Auto Diff 5 Future Test Test Name Order Date BONE DENSITY DEXA 03/21/2018 Next Appt Details Provider Name:Clark Llamas ier, 01/23/2025 11:15:00 AM, [address] [place] [address], Suite [facility], [place], [place], [phone], Provider Name:Clark Llamas ier, 07/25/2025 08:00:00 AM, [address] [place] [address], [address] [place] [address], [phone], Provider Name:Clark Llamas ier, 08/01/2025 09:30:00 AM, [address] [place] [address], [address], [place], [place], [phone], Insurance Providers Payer Name Payer Address Payer Phone Subscriber Number Group Number Insured Name Patient Relationship to Insured Coverage Start Date Coverage End Date [facility] [employer] [address] [address] [place] [address] [id number] Nadia Lee Self - patient is the insured [facility] [address] [place] [address] [id number] Joan Lee Spouse - patient is the spouse of the insured Medical (General) History Medical History History ICD Code colonoscopy 02/04/2006; colono scopy done 10/10/15 w/Dr. Ulloa serrated adenom repeated 2020 CALKER E ANTHONY, 09/12 had gu evaluation 2 years ago and didn't want to do any evalual colonoscopy 01/29/21, repeat 7-10yrs
--- OUTSIDE RECORDS SUMMARY | 2024-07-28 15:41 | XMS_ITS | Continuity of Care Document ---
Author Organization [facility], [facility] 1[facility] Floor Address [address] [place] [address] Assessment No assessment recorded. Plan of Treatment Reminders Order Date Submit Date Provider Last Modified By Organization Details Last Modified Time Details Appointments POST OP 15 025 10:15AM Kathy Crowe MD Not available Not available Not available Lab None record ed. Referral None record ed. Procedures None record ed. Surgeries None record ed. Imaging None record ed. Medication Orders None record ed. Patient TargetsNo targets recorded. Patient Instructions Encounter Date Encounter Id Patient Instructions Last Modified By Organization Details Last Modified Time 07/18/[id number] cast removal* [email or web address] Not available 0 07/18/2024 10:15:14 application of cast, short leg cast* [email or web address] Not available 07/18/2024 10:15:14 Reason for Referral None Reported. Problems Name Problem SNOMED Code Status Onset Date Resolution Date Notes Provider Name and Address Organization Details Recorded Time Trochanteri c bursitis of right hip 5313683122218 00 Active 2023 Amber Nguyễn i, PA-C [address], [place], [address], [facility] 13:26:49 Problem Notes None recorded. Procedures Surgical History Date Name Laterality Status Provider Name and Address Organization Details Recorded Time 07/04/19 25 Cast_Short Leg_11+ active Sandra Garcia [facility] 07/04/2024 11:00:44 03/25/20 24 Splint_Short Leg Plaster_11+ completed Abbi Navarrete [facility] 03/25/2024 09:14:32 03/17/20 24 ORTHOPAEDIC SURGERY (SURG) completed PATRICIA MCDERMOTT [facility] 03/31/2024 10:25:41 11/02/19 24 JZHip Inj completed Amber Olivo PA-C [address], [place], [address], [facility] 11/02/2023 13:26:43 Imaging Results None recorded. Procedure [...] Updated DateTime 07/18/2024 167.64 cm 37.1 kg/m2 921309.25 g HOWARD POSADAS [facility] 07/18/2024 09:12:30 Social History None recorded. Functional Status None recorded. Mental Status None recorded. Family History Nothing Reported. Medical History No medical history recorded. Gynecological HistoryNo gynecological history recorded. Obstetrics History GPAL:G 0 P 0 0 0 0 Past Encounters Encounter ID Performer Location Encounter Start Date Encounter Closed Date Diagnosis/Indication Diagnosis SNOMED-CT Code Diagnosis ICD10 Code Diagnosis Note MD TARA [facility] [address] [place] [address] 06/17/2024 10:34:35 06/30/2024 12:51:58 Right Achilles tendinitis 1722107184 38777 M76.61 Calcaneal spur of right foot 2976023171 95241 M77.31 [id number] MD TARA [facility] 1st [address] [place] [address] 06/20/2024 14:38:44 07/04/2024 15:19:53 Right Achilles tendinitis 5062370849 55109 M76.61 Calcaneal spur of right foot 8920786743 74464 M77.31 Rupture of right Achilles tendon 4183177444 8301941 S86.011A [id number] SANDEEP [facility]ong [facility] [address] [place] [address] 07/18/2024 09:04:22 07/18/2024 10:20:40 Rupture of right Achilles tendon 3716937840 8479653 S86.011A Health Concerns Section Related Observation LastModified by Organization Detai ls LastModified Time None Recorded Concern Status LastModified by Organization Details LastModified Time None Recorded Payers Encounter Date Sequence Insurance Name Policy Number Policy Mcdonald Covered Member ID Mcdonald Member ID Guarantor Name 07/18/2024 1 [facility] (MEDICARE REPLACEMENT/A DVANTAGE - PPO) [id number] Nadia Lee [id number] Nadia Lee 07/18/2024 2 [employer] (MEDICARE SUPPLEMENT) Nadia Lee [id number] Nadia Lee Notes Date Note Type Note Provider Name and Address Organization Details Recorded Time 07/18/2024 text/html I am seeing this patient under [...] questions or concerns. Luci Santos PA-C [address] [facility] [address], [place], [address], [facility] 07/18/2024 10:20:39 OBGyn Episode No OBEpisode recorded.
--- OUTSIDE RECORDS SUMMARY | 2024-07-28 15:41 | XMS_ITS ---
Author Organization Clark Mejía MD Address [address] [place], [place] [id number] Care Team Providers Care Soft Drink Powder Mixer Name Role Phone Clark Mejía Primary Care Provider REASON FOR VISIT ER Encounters Encounter Location Date Provider Diagnosis Clark Mejía MD [facility] [address] [place] [phone] 06/20/2024 Clark Mejía Plan Of Treatment Next Appt Details Provider Name:Clark Llamas ier, 01/23/2025 11:15:00 AM, [address] [place] [address], [address] [place] [address], [phone], Provider Name:Clark Llamas ier, 07/25/2025 08:00:00 AM, [address] [place] [address], [address] [place] [address], [phone], Provider Name:Clark Llamas iemainor, 08/01/2025 09:30:00 AM, [address] [place] [address], [address], [phone], Progress Notes * Nadia LEE LDOB:1955 (68 yo F)Acc No.[id number]:06/20/2024 Patient:?Nadia Lee :1955???Age:68 Y???Sex:Female Address:[facility] [place] [address] * true * Date:? Generated for Stefano moyer/Dinora/eTransmitting on:?07/28/2024 03:41 PM EST
== END 2024-07-28 11:01 | disposition home or self-care (01) ==
LOC: HO.LNP 11:00
PROVIDERS: Visit Provider Internal Medicine
DX: D72.820 Lymphocytosis (symptomatic) (principal)
CPT/HCPCS: 85025

== ENCOUNTER 2024-11-09 10:00 | Outpatient (RCR) | payer OTHER, SELFPAY | END 2024-11-09 17:10 | disposition home or self-care (01) | LOC: HO.PT 10:00 | PROVIDERS: PCP Internal Medicine; Visit Provider Orthopaedic Surgery | DX: S86.011D Strain of right Achilles tendon, subsequent encounter (principal) | CPT/HCPCS: 97110; 97112; 97140; 97161; 97530 ==

== ENCOUNTER → 2024-11-09 10:51 | Outpatient (BNVA) | payer OTHER, SELFPAY | PROVIDERS: PCP Internal Medicine; Visit Provider Physician Assistant Surgical ==

== ENCOUNTER 2025-01-16 10:01 | Outpatient (REF) | payer OTHER, SELFPAY ==
--- OUTSIDE RECORDS SUMMARY | 2025-01-16 03:45 | XMS_ITS ---
Author Organization Clark Mejía MD Address [address] [place], [place] [phone] Care Team Providers Care Coach Builder Name Role Phone Clark Mejía Primary Care Provider [phone] Results Component Value Reference Range Notes Complete Blood Count Auto Di ff (Not yet reviewed by provider) Interpretation: Performing Lab:[facility], [address] [place] [phone] Notes/Report: White Blood Count 7.4 4.8-10.8 X10*3/uL Red Blood Count 5.01 4.20-5.50 X10*6/uL Hemoglobin 14.6 12.0-16.0 g/dl Hematocrit 43.8 37.0-47.0 % Mean Corpuscular Volume 87.4 80.0-98.0 fL Mean Corpuscular Hemoglobin 29.1 27.0-33.0 pg Mean Corpuscular HGB Conc 33.3 31.0-35.0 g/dl Red Cell Distribution Width 12.8 11.0-16.0 % Platelet Count 217 160-400 X10*3/uL Mean Platelet Volume 11.0 9.4-12.3 fL Neutrophils Percent Auto 34.4 45-73 % Imm Gran Pct Auto 0.3 0.0-0.4 % Lymphocytes Percent Auto 55.3 20-40 % Monocytes Percent Auto 7.0 2-11 % Eosinophils Percent Auto 2.3 0-4 % Basophils Percent Auto 0.7 0-2 % NRBC Pct Auto 0.0 0.0-0.2 /100WBC Neutrophils Absolute Auto 2.6 2.0-8.3 x10*3/u L Imm Gran Abs Auto 0.02 0.00-0.03 X10*3/uL Lymphocytes Absolute Auto 4.1 1.2-4.9 X10*3/u L Monocytes Absolute Auto 0.5 0.1-1.2 X10*3/uL Eosinophils Absolute Auto 0.2 0.0-0.4 X10*3/u L Basophils Absolute Auto 0.1 0.0-0.2 X10*3/uL NRBC Abs Auto 0.000 0.0-0.012 X10*3/uL REASON FOR VISIT repeat CBC with Diff/ 6 month Encounters Encounter Location Date Provider Diagnosis Clark Mejía MD [address] [place] [id number] 01/16/2025 Clark Mejía Lymphocytosis D72.82 0 Assessments Encounter Date Diagnosis (ICD Code) Assessment Notes Treatment Notes Treatment Clinical Notes Section Notes 01/16/2025 Lymphocytosis (ICD-10 - D72.820) Plan Of Treatment Pending Test Test Name Order Date Complete Blood Count Auto Diff Next Appt Details Provider Name:Clark Llamas graham, 01/23/2025 11:15:00 AM, [address] [place] [address], [address], [phone], Provider Name:Clark Llamas graham, 07/25/2025 08:00:00 AM, [address] [place] [address], [address], [phone], Provider Name:Clark Llamas graham, 08/01/2025 09:30:00 AM, [address] [place] [address], [phone], Progress Notes * Nadia LEE LDOB:1955 (69 yo F)Acc No.[id number]:01/16/2025 Progress Note Patient: Nadia MCCALL Provider: Kenny Mejía MD :1955 A ge:69 Y S ex:Female Date:01/16/2025 Address:[facility], [id number] Subjective: * Chief Complaints: * 1 . repeat CBC with Diff/ 6 month. * Medical History: Objective: * Vitals: Assessment: * Assessment: 1. L ymphocytosis - D72.820 (Primary) Plan: * Treatment: * Procedure Codes: 3 6415 VENIPUNCT, ROUTINE* * * The named appointment provid er may or may not be the originator of this progress note, and it is not deemed complete until electronically signed by the appointment provider. Sign off status: Pending * Provider: Kenny Mejía MD Date: 0 01/16/2025 Generated for Stefano moyer/Dinora/Judyitting on: 0 01/16/2025 10:55 AM EDT
[2025-01-16 10:05] LABS: MANUAL DIFF FLAG NO
[2025-01-16 10:22] LABS: Hematocrit 43.8 % (37.0-47.0); Hemoglobin 14.6 g/dl (12.0-16.0); Imm Gran Abs Auto 0.02 X10*3/uL (0.00-0.03); Imm Gran Pct Auto 0.3 % (0.0-0.4); Lymphocytes Absolute Auto 4.1 X10*3/uL (1.2-4.9); Mean Corpuscular HGB Conc 33.3 g/dl (31.0-35.0); Mean Corpuscular Hemoglobin 29.1 pg (27.0-33.0); Mean Corpuscular Volume 87.4 fL (80.0-98.0); NRBC Abs Auto 0.000 X10*3/uL (0.0-0.012); NRBC Pct Auto 0.0 /100WBC (0.0-0.2); Platelet Count 217 X10*3/uL (160-400); Red Blood Count 5.01 X10*6/uL (4.20-5.50); White Blood Count 7.4 X10*3/uL (4.8-10.8)
--- OUTSIDE RECORDS SUMMARY | 2025-01-16 10:56 | XMS_ITS | Patient Health Record ---
Author Organization [facility] Address [address] [place] [address] Care Team Providers Care Lag Screwer Name Role Phone Alfonzo CORTES, Clark Primary Care Provider Osvaldo Rodriges Jr [phone] Allergies No Known Allergies Reason For Referral No Information Medications Medication SIG (Take, Route, Frequency, Duration) Notes Start Date End Date Status MiraLax (colon prep) 17 GM/SCOOP mixed with Gatorade or Crystal Light Orally begin at 5:00 p.m. the day before the procedure for 1 day 01/21/2021 Active Immunizations Vaccine Route Administration Date Status Comme nts Influenza Unknown 01/21/2021 Administered Problems Problem Type SNOMED Code ICD Code Onset Dates Problem Status W/U Status Risk Notes Problem 045354035 Colon cancer screening (Z12.11) Active confirmed Problem 597928645 Personal history of colonic polyps (Z86.010) Active confirmed Problem 064523982 Encounter for other preprocedural examination (Z01.818) Active confirmed Plan Of Treatment Future Test Test Name Order Date COLONOSCOPY 08/01/2015 COLONOSCOPY 01/21/2021 Insurance Providers Payer Name Payer Address Payer Phone Subscriber Number Group Number Insured Name Patient Relationship to Insured Coverage Start Date Coverage End Date [facility] [address] [address] [place] [address] [id number] PETER RODRIGUEZ Self - patient is the insured [employer] [address] [place] [address] [phone] [id number] PETER RODRIGUEZ Self - patient is the insured Medical (General) History Medical History History ICD Code colonoscopy 10/10/15, serrate d adenoma less than 10 mm, five-year followup recommended degenerative joint disease Surgical History Surgery Date(Month/Year) left knee surgery pelvis fracture
== END 2025-01-16 10:02 | disposition home or self-care (01) ==
LOC: HO.LNP 10:01
PROVIDERS: Visit Provider Internal Medicine
DX: D72.820 Lymphocytosis (symptomatic) (principal)
CPT/HCPCS: 85025